=== PATIENT | male | born 1965 | race Caucasian/White ===

== ENCOUNTER → 2018-01-04 15:46 | Outpatient (CLI) | payer OTHER, SELFPAY ==
--- NOTE | 2018-01-04 15:46 | DT_ITS ---
This patient was seen during an EMR downtime January 02, 2018 - January 09, 2018. This patient may have a combination of paper and electronic documentation or all paper documentation. All documentation is viewable within the e-chart portion of [facility] for each patient visit.
--- NOTE | 2018-01-04 15:50 | RAD_ITS ---
STUDY: X-RAY - LEFT KNEE REASON FOR EXAM: Male, 52 years old. Pain. TECHNIQUE: 3 view(s) of the knee. COMPARISON: None. FINDINGS: Normal visualized distal femur. Normal visualized proximal tibia and fibula. Normal proximal tibiofibular articulation. There is mild degenerative arthrosis of the medial femorotibial compartment. There is mild degenerative arthrosis of the lateral femorotibial compartment. Normal patellofemoral articulation. The soft tissue structures are unremarkable. RAD/Knee 3 Views IMPRESSION: Degenerative arthrosis. Electronically Signed: Sarah Draper MD at 23:02 EDT Tel , Service support ,
--- NOTE | 2018-01-04 15:50 | RAD_ITS ---
STUDY: X-RAY - RIGHT KNEE REASON FOR EXAM: Male, 52 years old. Right knee pain. TECHNIQUE: 3 view(s) of the knee. COMPARISON: None. FINDINGS: Normal visualized distal femur. Normal visualized proximal tibia and fibula. Normal proximal tibiofibular articulation. There is mild degenerative arthrosis of the medial femorotibial compartment. There is mild degenerative arthrosis of the lateral femorotibial compartment. Normal patellofemoral articulation. The soft tissue structures are unremarkable. RAD/Knee 3 Views IMPRESSION: Degenerative arthrosis. Electronically Signed: Sarah Draper MD at 22:49 EDT Tel , Service support ,
--- NOTE | 2018-01-04 15:50 | RAD_ITS ---
STUDY: X-RAY - CERVICAL SPINE REASON FOR EXAM: Male, 52 years old. herniated disc, right side pain TECHNIQUE: 5 view(s) of the cervical spine were obtained. COMPARISON: None FINDINGS: Normal cervical lordosis. There is multi-level endplate spondylosis. There is minimal multi-level degenerative disc disease with multilevel disc space narrowing. The soft tissue structures are unremarkable. RAD/Cerv Spine 4 or 5 Views IMPRESSION: Degenerative changes of the spine. Electronically Signed: John Vizcarra MD at 9:43 EDT Tel , Service support ,
--- NOTE | 2018-01-04 15:50 | RAD_ITS ---
STUDY: X-RAY - SACROILIAC JOINTS REASON FOR EXAM: Male, 52 years old. bilat leg pain, back surg 2002. TECHNIQUE: 3 view(s) of the sacroiliac joints were obtained. COMPARISON: None. FINDINGS: Normal bilateral sacroiliac joints. Normal visualized sacral ala and sacrum. Normal visualized iliac bones. There is a neurostimulator device with electrodes overlying the region of S3/S4. RAD/S-I Jts 3 or More Views IMPRESSION: Normal x-ray examination of the bilateral sacroiliac joints. Electronically Signed: John Vizcarra MD at 9:47 EDT Tel , Service support ,
--- NOTE | 2018-01-04 15:50 | RAD_ITS ---
STUDY: X-RAY - LUMBAR SPINE REASON FOR EXAM: Male, 52 years old. bilat leg pain, 2003 back surg TECHNIQUE: 5 view(s) of the lumbar spine were obtained. COMPARISON: None FINDINGS: There is straightening of the normal lumbar lordosis. There is multilevel endplate spondylosis of the lumbar vertebrae. There is multi-level degenerative disc disease with multi-level disc space narrowing. The soft tissue structures are unremarkable. RAD/L/S Spine Min 4 Views IMPRESSION: Degenerative changes of the spine. Electronically Signed: John Vizcarra MD at 9:42 EDT Tel , Service support ,
== END ==
PROVIDERS: Family Provider Family Medicine; PCP Family Medicine; Visit Provider Family Medicine
DX: M54.2 Cervicalgia (principal); M46.90 Unspecified inflammatory spondylopathy, site unspecified; M25.561 Pain in right knee; M25.562 Pain in left knee
CPT/HCPCS: 72050; 72110; 72202; 73562

== ENCOUNTER → 2018-06-29 12:46 | Outpatient (CLI) | payer OTHER, SELFPAY ==
[2018-06-29 12:38] VITALS: BMI 57.3
--- NOTE | 2018-06-29 12:48 | RAD_ITS ---
STUDY: X-RAY - LEFT HAND, ATTENTION second FINGER REASON FOR EXAM: Male, 52 years old. Foreign body distal tip of finger TECHNIQUE: 3 view(s) of the finger were obtained. COMPARISON: None. FINDINGS: Normal metacarpal head. Normal metacarpophalangeal joint. Normal proximal phalanx. Normal middle phalanx. Normal distal phalanx. Normal proximal interphalangeal joint. Normal distal interphalangeal joint. RAD/Finger(s) Min 2 Views IMPRESSION: Normal x-ray examination of the finger. There is no radiopaque foreign body. Electronically Signed: Helen Marie MD at 3:12 EST , Service support ,
--- OUTSIDE RECORDS SUMMARY | 2018-08-24 16:11 | XMS RPT_ITS ---
:1965 Author Organization OHIP Care Team Providers Name Role Phone Fernando Poole D.O. Attending Unavailable Kamlesh Desouza Attending Unavailable Kamlesh Desouza Referring Unavailable Kamlesh Desouza Primary Care Unavailable Nurse, Surgery Attending Unavailable Kamlesh Desouza Referring Unavailable Sabina Garland Attending Unavailable Paige Garcia Attending Unavailable Kamlesh Desouza Referring Unavailable Paige Garcia Attending Unavailable Paige Garcia Referring Unavailable Kamlesh Desouza Primary Care Unavailable Paige Garcia Attending Unavailable Paige Garcia Referring Unavailable Arlington, Albina PLATE FILLER-C Primary Care Unavailable ArlingtonAlbina December Admitting Unavailable Arlington, Albina December Attending Unavailable Arlington, Albina December Primary Care Unavailable EVON, TAGREED M Attending Unavailable EVON, TAGREED M Referring Unavailable EVON, TAGREED M Referring Unavailable EVON, TAGREED M Referring Unavailable EVON, TAGREED M Attending Unavailable ELA MOSER Referring Unavailable ELA MOSER Attending Unavailable Eric Hansen MD Admitting Unavailable Eric Hansen MD Attending Unavailable DAPHNE ELIZALDE ([facility]) Attending Unavailable DAPHNE ELIZALDE ([facility]) Attending Unavailable JEZ SANDOVAL Attending Unavailable ELIZALDE, DAPHNE ([facility]) Referring Unavailable LOLI AMARAL Attending Unavailable CORTES ELIZALDEZABETH ([facility]) Referring Unavailable JEZ SANDOVAL Attending Unavailable CORTES ELIZALDEZABETH ([facility]) Referring Unavailable LOLI AMARAL Attending Unavailable ELIZALDE, DAPHNE ([facility]) Referring Unavailable SAMANTHA LOYD ([facility]) Attending Unavailable DAPHNE ELIZALDE ([facility]) Attending Unavailable ARA, CHELSIE NMiranda Admitting Unavailable ARA, CHELSIE N. Primary Care Unavailable IMCA Referring Unavailable ELIZALDE, EMELIAB Attending Unavailable IMCA Referring Unavailable FARSHAD MENDOZA Attending Unavailable LOLI AMARAL Attending Unavailable ELIZALDE, ELIZAB Referring Unavailable LOLI AMARAL Attending Unavailable ELIZALDE, ELIZAB Referring Unavailable IMCA Referring Unavailable IMCA Referring Unavailable SAMANTHA LOYD Attending Unavailable ELIZALDE, ELIZAB Referring Unavailable JEZ SANDOVAL Attending Unavailable LOLI AMARAL Attending Unavailable ELIZALDE, ELIZAB Referring Unavailable LOLI AMARAL Attending Unavailable ELIZALDE, ELIZAB Referring Unavailable IMCA Referring Unavailable EMELIA ELIZALDEB Attending Unavailable IMCA Referring Unavailable ELIZALDECORTESZAB Attending Unavailable IMCA Referring Unavailable ELIZALDEEMELIAB Attending Unavailable IMCA Referring Unavailable IMCA Primary Care Unavailable ELIZALDECORTESZAB Attending Unavailable ELIZALDE, ELIZAB Referring Unavailable JEZ SANDOVAL Attending Unavailable LOLI AMARAL Attending Unavailable ELIZALDE, ELIZAB Referring Unavailable PROBLEMS PROBLEMS DATE TYPE CONDITION / CODE ATTENDING STATUS SOURCE 07/11/2018 Active Unknown / ELIZALDE, Active [place] UNK(Unknown) [facility] Other (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) [place] Repository 07/03/2018 Active Dietary counseling NA Active [place] and surveillance / Clinic Other Z71.3(ICD-10) [place] Repository 06/29/2018 Unknown M79.645 - Pain in [place], Active [place] left finger(s) / [facility] M79.645(ICD-10) Hospital Repository 03/16/2016 Active Morbid (severe) SAMANTHA LOYD Active [place] obesity due to ([facility]) Clinic Other excess calories / [place] E66.01(ICD-10) Repository 06/27/2018 Active Obstructive sleep SAMANTHA LOYD Active [place] apnea (adult) ([facility]) Clinic Other (pediatric) / [place] G47.33(ICD-10) Repository 06/27/2018 Active 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 ([facility]) Clinic Other and devices / [place] Z99.89(ICD-10) Repository 03/16/2016 Admitting Unknown / SAMANTHA LOYD Active [facility] diagnosis UNK(Unknown) Health System Repository 06/08/2018 Active Other amnesia / JEZ SANDOVAL Active [place] R41.3(ICD-10) Clinic Other [place] Repository 06/08/2018 Active Bipolar disorder, JEZ SANDOVAL Active [place] currently in Clinic Other remission, most [place] recent episode Repository unspecified / F31.70(ICD-10) 06/08/2018 Active Bipolar disorder, ADRIEN, Active [place] unspecified / LOLI Clinic Other F31.9(ICD-10) [place] Repository 04/11/2018 Active Obsessive-compulsive ELIZALDE, Active [place] disorder, [facility] Clinic Other unspecified / ([facility]) [place] F42.9(ICD-10) Repository 04/11/2018 Active Unspecified mood ELIZALDE, Active [place] (affective) disorder [facility] Other / F39(ICD-10) ([facility]) [place] Repository 04/11/2018 Active Other snf ELIZALDE, Active [place] (current) drug [facility] Other therapy / ([facility]) [place] Z79.899(ICD-10) Repository 03/02/2018 Active Pain, unspecified / NA Active [place] R52(ICD-10) Clinic Main [place] Repository 01/25/2018 Unknown M54.2 - Cervicalgia Schinner, Kamlesh Active [place] / M54.2(ICD-10) E [facility] Repository 12/15/2017 Active Panic disorder TONIO, Active [place] (episodic paroxysmal [facility] Other anxiety) / (ORTHOPEDIC MECHANIC) [place] F41.0(ICD-10) Repository 12/01/2017 Active Low back pain / NA Active [place] M54.5(ICD-10) [facility] Main [place] Repository 12/01/2017 Active Other chronic pain / NA Active [place] G89.29(ICD-10) Clinic Main [place] Repository 12/01/2017 Active 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 [facility] services in other Hospital specified Repository circumstances / Z76.89(ICD-10) 09/29/2017 Admitting Encounter for [facility] diagnosis screening for Repository malignant neoplasm of prostate / Z12.5(ICD-10) 09/29/2017 Admitting Encounter for [facility] diagnosis screening for other Repository suspected endocrine disorder / Z13.29(ICD-10) 09/29/2017 Admitting Mixed hyperlipidemia [facility] diagnosis / E78.2(ICD-10) Repository 10/12/2017 Admitting Type 2 diabetes [facility] diagnosis mellitus without Repository complications / E11.9(ICD-10) PROCEDURES PROCEDURES No Procedure Records FoundRESULTS RESULTS OPERATIVE REPORT Observed: 07/12/2018 Status: F Source: ASIM 4:05 PM [facility] REPOSITORY [facility] Medical Records Department [address] [place] [id number] Operative Report 07/10/18 1419 MR#: [id number] Acct: [id number] Name: BENTLEY CRAWFORD Rep #: [id number] : 1965 52 From: Paige Garcia DO PCP: GEOVANNY Tolentino Status: [facility] [place] [facility] [place] Date of Procedure: 07/10/18 Pre-Operative Diagnosis: foreign body/ track left index finger Post-Operative Diagnosis: same Surgery/Procedure Performed:: left index finger foreign body excision/tract excision, soft tissue and ambar debridement Type of Anesthesia:: Local Estimated Blood Loss (mL): none Fluids Replaced: none Description of Procedure: Preop note Patient is a 52-year-old male who has had a left index finger appears to be a foreign body that keeps annoying him for over the last few months. Patient is seeing a application integration specialist and had it removed it came back. Wrist benefits alternatives surgery discussed with patient. Risks include but not limited to blood loss, blood clot, infection, neurovascular injury, failure procedure, loss of life and loss of limb. Is unsure if this is a foreign body or tract coming from somewhere else deeper so we will excise it including the skin is sent to pathology for further evaluation. Patient is aware like proceed his aforementioned. Operative note Patient seen and examined preoperative holding area left index finger was marked. Patient brought to the operating placed supine on the operating table. Signing anesthesia and antibiotics and local was placed into his left index finger. We able to visualize what appeared to be a little black dot just at the tip of his finger just underneath the germinal matrix. We then placed a tourniquet on his finger timeout was performed we then ellipticized the area which appeared to be with the black dot in the track and sent to pathology for further evaluation. We then were able to visualize the tract and there we were able to visualize the bone we did some bony debridement see if there is anything a foreign body or anything around the bones which there was not. We then irrigated the incision with copious amounts of sterile saline. We noted that there was no further tracking towards the nail or the pulp of the finger we closed the skin with interrupted 4-0 nylon stitches. Sterile dressings were applied tourniquet was removed. There were no complications transferred to recovery room in stable condition. Next Postoperative note May use finger as tolerated keep clean and dry for the next 10-14 days and Prescription at Hospital pharmacy Call with increased pain numbness tingling further issues arise This note was generated with [employer] dictation software. It may contain incorrect words, spelling, and punctuation that were not noted in checking the note before signing. 07/12/18 [id number] <Electronically signed by Paige Garcia DO> Date Paige Garcia DO CC: GEOVANNY Church; Paige Garcia DO Signed PROGRESS Observed: 07/11/2018 Status: COMPLETED Source: [place] 1:07 PM CLINIC OTHER CAMPUS REPOSITORY HNO ID: [id number] Author: Daphne Elizalde Service: (none) Author Type: Nurse Practitioner Type: Progress Notes Filed: 07/11/2018 3:04 PM Note Text: Time: 1:10 PM to 1:40 PM PHQ-9/JESSEE-7: Med list updated and PHQ9 and GAD7 completed during session; reviewed and discussed with patient; submitted for entry after session. Interim History: Bentley Crawford is a 52 year old male who presents in follow- up for Mood and Anxiety. He reports a pleasant Hanukkah with and son. They will celebrate Felicitas, too, since his is Anabaptism. Client reports medication adherence. Denies AEs. No TD/EPS. He has been meeting with Dr. Amaral, and will begin meeting with bariatric staff soon - he has decided to consider this procedure after many years of putting it off. His son is working with a psychologist, and Bentley continues to worry about him. He also feels sad that son seems to prefer to talk to his mother. Social Support: fair Substances: denies Labs/ medical: he had a procedure on his finger yesterday for unexplained growth; labs ordered in April not done yet; has had labs elsewhere by pcp. Current Outpatient Prescriptions on File Prior to Visit: baclofen (LIORESAL) 10 mg tablet Take 1 tablet by mouth three times daily as needed. Cholecalciferol, Vitamin D3, (VITAMIN D-3) 2,000 unit cap Take 5,000 Units by mouth. Takes 2 pills at the same time. clonazePAM (KLONOPIN) 1 mg tablet Take 1 tablet by mouth once daily for 90 days. fluticasone propionate (FLONASE ALLERGY RELIEF NASAL) Use in the nose. glimepiride (AMARYL) 1 mg tablet Take 1 mg by mouth daily with breakfast. lamoTRIgine (LAMICTAL) 200 mg tablet Take 1 tablet by mouth once daily. metFORMIN (GLUCOPHAGE) 1,000 mg tablet Take 1,000 mg by mouth twice daily. mometasone (NASONEX) 50 mcg/actuation nasal spray Use 2 Sprays in the nose once daily. oxaprozin (DAYPRO) 600 mg tablet Take 1 tablet twice daily or 2 tablets once daily with food as need for pain; no other NSAIDs while taking RABEPRAZOLE SODIUM (ACIPHEX ORAL) Take 20 mg by mouth twice daily. risperiDONE (RISPERDAL) 3 mg tablet Take 1 tablet by mouth twice daily. rosuvastatin (CRESTOR) 10 mg tablet Take 10 mg by mouth once daily. UBIDECARENONE (CO Q-10 ORAL) Take by mouth. venlafaxine ER (EFFEXOR XR) 150 mg 24 hr capsule Take 2 capsules by mouth once daily. No current facility-administered medications on file prior to visit. Problem List Noted Noted By Resolved Resolved By Chronic bilateral low back pain with sciatica 03/16/2016 [facility] No Morbid obesity (HCC) 03/16/2016 [facility] No Post laminectomy syndrome 10/06/2015 [facility] No Neuritis 07/09/2015 [facility] lateral [facility]yl[facility]/12[facility]2015 [facility] Elbow pain 02/12/2015 [facility] No Pain in right wrist 02/12/2015 [facility] No Soft tissue mass 02/12/2015 [facility] No Scrotal skin lesion 12/09/2014 Diego Stafford No S/P left knee arthroscopy and partial medial meniscectomy 03/14/2014 Ela Moser No Urinary urgency 11/22/2013 [facility] No Urge incontinence 11/22/2013 Diego Stafford No TMJ dysfunction 07/23/2013 [facility] No Referred otalgia 07/23/2013 [facility] No S/P right knee arthroscopy, partial medial meniscectomy and chondroplasties 06/14/2013 Ela Moser No Tear of medial cartilage or meniscus of knee, current 04/26/2013 Ela Moser No Bilateral low back pain with sciatica 10/06/2015 [facility] 03/16/2016 [facility] Morbid obesity due to excess calories (HCC) 10/06/2015 [facility] 03/16/2016 [facility] MSE: - Appearance casual dress, fair grooming - Behavior pleasant and engaged - Speech loud volume at baseline, circumstantial - Mood fairly euthymic, occasional anger, low energy and motivation - Affect congruent - Thought process ruminative - Thought content avoidant - Cognition grossly intact, concrete - Insight/Judgment fair/ intact Delusion: No. Hallucination: No Suicidal Ideation:No suicidal ideation, intent or plan Homicidal Ideation:No homicidal ideation, intent or plan. Orientation:Person, Place, Time and Situation Gait and Station: wnl Vital Signs: not checked today AIMS: wnl Review Of Systems Neurological/Sleep: Sleeps at night, but also sleeps most of the day which he says his way of coping/avoiding worries Appetite/Gastrointestinal: intact Skin: intact Other : Morbidly obese Diagnosis: Per hx, 1. Bipolar affective disorder, remission status unspecified (HCC) - ICD9: 296.80, ICD10: F31.9 (primary diagnosis) ? 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 ? 2. Obsessive-compulsive disorder, unspecified type - ICD9: 300.3, ICD10: F42.9 Hx of trauma - 04/11 - worked at [employer] ? current - ASSESSMENT/PLAN: 1. Bipolar affective disorder, remission status unspecified (HCC) - ICD9: 296.80, ICD10: F31.9 (primary diagnosis) 2. Obsessive-compulsive disorder, unspecified type - ICD9: 300.3, ICD10: F42.9 Daphne Elizalde APRN.ORTHOPEDIC MECHANIC Condition: Unchanged Therapy/ Treatment Plan: Supportive and educational interventions. Medication R/B/BBWs reviewed, including metabolic syndrome with risperidone. Bentley remains fearful of medication changes due to past issues with anger/aggression attributed to a bipolar disorder. However, he has wondered about the impact of risperidone on his weight. We discussed the potential role of medication in weight issues as particularly relevant in the context of considering bariatric surgery. He is to begin a weight loss plan soon, so we have agreed to f/u in 3 months to reassess; he says he is able to bring his to his next appointment for collateral information and tx planning -- if medication changes made, she may help him monitor for changes in mood and fx. Medication: Continue for now -- Klonopin 1 mg daily prn panic. Call if refill needed. Effexor XR 150 mg BID ? Risperdal 3 mg BID ? -- Bentley says he has taken this medication as 6 mg qhs for many years - he is not sure how that came to be. New order changed to reflect 6 mg nightly. Lamictal 200 mg daily ? Monitor: weight/eating habits, mood, anxiety, sleep OARRS: PDMP website checked and validated. All prescriptions have been APPROPRIATELY filled. No suspicious activity was identified. 07/11/2018 by Daphne Elizalde APRN.NIVIA Follow-up in 3 months. Sooner, if needed. Referred to/follow-up with: dr. Amaral, bariatrics, pcp as directed Daphne Elizalde APRN.CNP HOSP Observed: 07/11/2018 Status: COMPLETED Source: [place] 1:00 PM CLINIC OTHER CAMPUS REPOSITORY Psych Office Visit (AGPSYACC) BENTLEY CRAWFORD ([id number]) 1965 M Date Time Provider Department 07/11/18 1:00 PM DAPHNE ELIZALDE ([facility]) AGPSYACC During your visit today, we recorded the following information about you: Daphne Elizalde APRN.CNP 07/11/2018 3:04 PM Signed Time: 1:10 PM to 1:40 PM PHQ-9/JESSEE-7: Med list updated and PHQ9 and GAD7 completed during session; reviewed and discussed with patient; submitted for entry after session. Interim History: Bentley Crawford is a 52 year old male who presents in follow- up for Mood and Anxiety. He reports a pleasant Hanukkah with and son. They will celebrate Felicitas, too, since his is Anabaptism. Client reports medication adherence. Denies AEs. No TD/EPS. He has been meeting with Dr. Amaral, and will begin meeting with bariatric staff soon - he has decided to consider this procedure after many years of putting it off. His son is working with a psychologist, and Bentley continues to worry about him. He also feels sad that son seems to prefer to talk to his mother. Social Support: fair Substances: denies Labs/ medical: he had a procedure on his finger yesterday for unexplained growth; labs ordered in April not done yet; has had labs elsewhere by pcp. Current Outpatient Prescriptions on File Prior to Visit: baclofen (LIORESAL) 10 mg tablet Take 1 tablet by mouth three times daily as needed. Cholecalciferol, Vitamin D3, (VITAMIN D-3) 2,000 unit cap Take 5,000 Units by mouth. Takes 2 pills at the same time. clonazePAM (KLONOPIN) 1 mg tablet Take 1 tablet by mouth once daily for 90 days. fluticasone propionate (FLONASE ALLERGY RELIEF NASAL) Use in the nose. glimepiride (AMARYL) 1 mg tablet Take 1 mg by mouth daily with breakfast. lamoTRIgine (LAMICTAL) 200 mg tablet Take 1 tablet by mouth once daily. metFORMIN (GLUCOPHAGE) 1,000 mg tablet Take 1,000 mg by mouth twice daily. mometasone (NASONEX) 50 mcg/actuation nasal spray Use 2 Sprays in the nose once daily. oxaprozin (DAYPRO) 600 mg tablet Take 1 tablet twice daily or 2 tablets once daily with food as need for pain; no other NSAIDs while taking RABEPRAZOLE SODIUM (ACIPHEX ORAL) Take 20 mg by mouth twice daily. risperiDONE (RISPERDAL) 3 mg tablet Take 1 tablet by mouth twice daily. rosuvastatin (CRESTOR) 10 mg tablet Take 10 mg by mouth once daily. UBIDECARENONE (CO Q-10 ORAL) Take by mouth. venlafaxine ER (EFFEXOR XR) 150 mg 24 hr capsule Take 2 capsules by mouth once daily. No current facility-administered medications on file prior to visit. Problem List Noted Noted By Resolved Resolved By Chronic bilateral low back pain with sciatica 03/16/2016 [facility] No Morbid obesity (HCC) 03/16/2016 [facility] No Post laminectomy syndrome 10/06/2015 [facility] No Neuritis 07/09/2015 Yany Parker No Right lateral epicondylitis 02/12/2015 Yany Parker No Elbow pain 02/12/2015 Y[facility] No Pain in right wrist 02/12/2015 [facility] No Soft tissue mass 02/12/2015 [facility] No Scrotal skin lesion 12/09/2014 Diego Stafford No S/P left knee arthroscopy and partial medial meniscectomy 03/14/2014 Ela Moser No Urinary urgency 11/22/2013 Diego Stafford No Urge incontinence 11/22/2013 Diego Stafford No TMJ dysfunction 07/23/2013 [facility] No Referred otalgia 07/23/2013 [facility] No S/P right knee arthroscopy, partial medial meniscectomy and chondroplasties 06/14/2013 Ela Moser No Tear of medial cartilage or meniscus of knee, current 04/26/2013 Ela Moser No Bilateral low back pain with sciatica 10/06/2015 Glen [facility] 03/16/2016 [facility] Morbid obesity due to excess calories (HCC) 10/06/2015 Glen Lopez 03/16/2016 [facility] MSE: - Appearance casual dress, fair grooming - Behavior pleasant and engaged - Speech loud volume at baseline, circumstantial - Mood fairly euthymic, occasional anger, low energy and motivation - Affect congruent - Thought process ruminative - Thought content avoidant - Cognition grossly intact, concrete - Insight/Judgment fair/ intact Delusion: No. Hallucination: No Suicidal Ideation:No suicidal ideation, intent or plan Homicidal Ideation:No homicidal ideation, intent or plan. Orientation:Person, Place, Time and Situation Gait and Station: wnl Vital Signs: not checked today AIMS: wnl Review Of Systems Neurological/Sleep: Sleeps at night, but also sleeps most of the day which he says his way of coping/avoiding worries Appetite/Gastrointestinal: intact Skin: intact Other : Morbidly obese Diagnosis: Per hx, 1. Bipolar affective disorder, remission status unspecified (HCC) - ICD9: 296.80, ICD10: F31.9 (primary diagnosis) ? 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 ? 2. Obsessive-compulsive disorder, unspecified type - ICD9: 300.3, ICD10: F42.9 Hx of trauma - 04/11 - worked at [employer] ? current - ASSESSMENT/PLAN: 1. Bipolar affective disorder, remission status unspecified (HCC) - ICD9: 296.80, ICD10: F31.9 (primary diagnosis) 2. Obsessive-compulsive disorder, unspecified type - ICD9: 300.3, ICD10: F42.9 Daphne Elizalde APRN.NIVIA Condition: Unchanged Therapy/ Treatment Plan: Supportive and educational interventions. Medication R/B/BBWs reviewed, including metabolic syndrome with risperidone. Bentley remains fearful of medication changes due to past issues with anger/aggression attributed to a bipolar disorder. However, he has wondered about the impact of risperidone on his weight. We discussed the potential role of medication in weight issues as particularly relevant in the context of considering bariatric surgery. He is to begin a weight loss plan soon, so we have agreed to f/u in 3 months to reassess; he says he is able to bring his to his next appointment for collateral information and tx planning -- if medication changes made, she may help him monitor for changes in mood and fx. Medication: Continue for now -- Klonopin 1 mg daily prn panic. Call if refill needed. Effexor XR 150 mg BID ? Risperdal 3 mg BID ? -- Bentley says he has taken this medication as 6 mg qhs for many years - he is not sure how that came to be. New order changed to reflect 6 mg nightly. Lamictal 200 mg daily ? Monitor: weight/eating habits, mood, anxiety, sleep OARRS: PDMP website checked and validated. All prescriptions have been APPROPRIATELY filled. No suspicious activity was identified. 07/11/2018 by Daphne Elizalde APRN.ORTHOPEDIC MECHANIC Follow-up in 3 months. Sooner, if needed. Referred to/follow-up with: dr. Amaral, bariatrics, pcp as directed Daphne Elizalde APRN.ORTHOPEDIC MECHANIC Referring Provider: SELF [200] Allergies As of Date: 07/11/2018 Noted Allergy Reaction CATS 04/03/2014 9 - Itching SEASONAL ALLERGIES 09/17/2014 14 - Other: See Comments Comments: Runny nose and itchy eyes Date Reviewed: 06/27/2018 Reviewed by: Piedad Huber - Fully Assessed Reason for Visit: Mood [1090] Anxiety [9] Primary Visit Diagnosis:Bipolar affective disorder, remission status unspecified ([facility]) [F31.9] Other Visit Diagnosis:Obsessive-compulsive disorder, unspecified type [F42.9] Order(s):lamoTRIgine (LAMICTAL) 200 mg tabletTake 1 tablet by mouth once daily.Disp: 30 tabletRfl: 2 risperiDONE (RISPERDAL) 3 mg tabletTake 2 tablets by mouth daily at bedtime.Disp: 60 tabletRfl: 2 venlafaxine ER (EFFEXOR XR) 150 mg 24 hr capsuleTake 2 capsules by mouth once daily.Disp: 60 capsuleRfl: 2 Prescriptions as of 07/11/2018 Sig: BACLOFEN 10 MG TABLET Take 1 tablet by mouth three * CHOLECALCIFEROL (VITAMIN D3) * Take 5,000 Units by mouth. Ta* FLONASE ALLERGY RELIEF NASAL Use in the nose. GLIMEPIRIDE 1 MG TABLET Take 1 mg by mouth daily with* LAMOTRIGINE 200 MG TABLET Take 1 tablet by mouth once d* METFORMIN 1,000 MG TABLET Take 1,000 mg by mouth twice * MOMETASONE 50 MCG/ACTUATION N* Use 2 Sprays in the nose once* OXAPROZIN 600 MG TABLET Take 1 tablet twice daily or * ACIPHEX ORAL Take 20 mg by mouth twice kitty* RISPERIDONE 3 MG TABLET Take 2 tablets by mouth daily* ROSUVASTATIN 10 MG TABLET Take 10 mg by mouth once bryanna* CO Q-10 ORAL Take by mouth. VENLAFAXINE ER 150 MG CAPSULE* Take 2 capsules by mouth once* CLONAZEPAM 1 MG TABLET Take 1 tablet by mouth once d* Problem List As Of Date 07/11/2018 Noted Resolved Tear of medial cartilage or meniscus of knee, c*INVALID FOR* S/P right knee arthroscopy, partial medial meni*INVALID FOR* 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] INVALID FOR* Referred otalgia [H92.09] INVALID FOR* Urinary urgency [R39.15] INVALID FOR* Urge incontinence [N39.41] INVALID FOR* S/P left knee arthroscopy and partial medial me*INVALID FOR* Scrotal skin lesion [N50.9] INVALID FOR* Right lateral epicondylitis [M77.11] INVALID FOR* Elbow pain [M25.529] INVALID FOR* Pain in right wrist [M25.531] INVALID FOR* Soft tissue mass [M79.9] INVALID FOR* Neuritis [M79.2] INVALID FOR* Bilateral low back pain with sciatica [M54.40] INVALID FOR*03/16/2016 Morbid obesity due to excess calories (HCC) [E6*INVALID FOR*03/16/2016 Post laminectomy syndrome [M96.1] INVALID FOR* Chronic bilateral low back pain with sciatica [*INVALID FOR* Morbid obesity (HCC) [E66.01] INVALID FOR* Prescriptions ordered this encounter Disp Refills Start End LAMOTRIGINE 200 MG TABLET 30 t* 2 07/11/2018 Route: ORAL Sig: Take 1 tablet by mouth once daily. RISPERIDONE 3 MG TABLET 60 t* 2 07/11/2018 Route: ORAL Sig: Take 2 tablets by mouth daily at bedtime. VENLAFAXINE ER 150 MG CAPSULE,EXTEND* 60 c* 2 07/11/2018 Route: ORAL Sig: Take 2 capsules by mouth once daily. Medications Discontinued During This Encounter lamoTRIgine (LAMICTAL) 200 mg tablet 90 t* 1 01/19/2018 07/11/2018 Route: ORAL Sig: Take 1 tablet by mouth once daily. Disc: Reason for discontinue is not on file. risperiDONE (RISPERDAL) 3 mg tablet 180 * 1 01/19/2018 07/11/2018 Route: ORAL Sig: Take 1 tablet by mouth twice daily. Disc: Reason for discontinue is not on file. venlafaxine ER (EFFEXOR XR) 150 mg 2* 180 * 1 01/19/2018 07/11/2018 Route: ORAL Sig: Take 2 capsules by mouth once daily. Disc: Reason for discontinue is not on file. Follow-up and Disposition History Recorded Encounter Status:Closed by DAPHNE ELIZALDE CNP on 07/11/18 DISCHARGE INSTRUCTION Observed: 07/10/2018 Status: F Source: [place] 2:19 PM [facility] REPOSITORY [facility] Medical Records Department [address] [place] [address] Instructions for Home/Discharge Instructions 07/10/18 1418 MR#: [id number] Acct: [id number] Name: BENTLEY CRAWFORD Rep #: [id number] : 1965 52 From: Paige Garcia DO PCP: GEOVANNY Tolentino [place] [facility] [place] Diet: No Restrictions - leave dressing clean and dry, call with issues, may redress area if gets wet/soiled, follow up in 10-14 days for suture removal Discharge Activity: May Not Drive May shower in (days): 1 Ice area for (Minutes): 20 - Every hour while awake. Weight Bearing Status: Weight bearing as tolerated Keep extremity elevated above heart level: Operative Extremity Call your doctor if your incision/area has: Continuous Slow Oozing, Sudden Increased Bleeding, Increased Pain/ Swelling, Increased Redness, Foul Smelling Discharge Call your doctor if you observe: Fever of 101 or Higher, Coldness, Increased Pain, Numbness or Tingling, Change in Color, Calf discomfort Allergies/Adverse Reactions: Allergies No Known Allergies Allergy (Verified 07/07/18 15:22) Medications to take at Discharge cholecalciferol (vitamin D3) 3,000 unit tablet 5,000 unit PO QDAY 11/01/17 coenzyme Q10 100 mg capsule 100 mg PO QDAY 11/01/17 glimepiride 1 mg tablet 1 mg PO DAILY tab 11/01/17 lamotrigine 200 mg tablet 200 mg PO DAILY 11/01/17 metformin 500 mg tablet 1,000 mg PO BID tab 11/01/17 mometasone 50 mcg/actuation nasal spray 2 spray INTRANASAL ONCE g 11/01/17 rabeprazole 20 mg tablet,delayed release 20 mg PO BID 11/01/17 risperidone 3 mg tablet 3 mg PO BID tab 11/01/17 rosuvastatin 10 mg tablet 10 mg PO QHS 11/01/17 venlafaxine ER 150 mg capsule,extended release 24 hr 150 mg PO BID 11/01/17 Acetaminophen/Codeine #3 [Tylenol #3 Tablet] 1 - 2 tablet PO Q6H PRN PRN #30 tablet 07/10/18 The following prescriptions were given: Acetaminophen/Codeine #3 [Tylenol #3 Tablet] 1 - 2 tablet PO Q6H PRN PRN #30 tablet PRN Reason: Pain Primary Care Physician: Albina Church NP-C [Primary Care Provider] - Test Results: Test results from this visit will be discussed in further detail at your follow-up appointment, if applicable. Please Follow Up With: Paige Garcia DO - [phone] 07/10/18 1419 <Electronically signed by Paige Garcia DO> Date Paige Garcia DO CC: GEOVANNY Church CYST Observed: 07/10/2018 Status: F Source: [place] 12:00 AM [facility] REPOSITORY Patient: BENTLEY CRAWFORD : 1965 (52/M) Acct Num: [id number] Phys: Paige Garcia DO Unit Num: [id number] [place] [facility] [place]imen: [id number] Received: 07/10/18 1453 Spec Type: Cyst TISSUES 1 TISSUES: Finger, NOS COMMENT Clinical correlation is suggested. A distinct cystic structure is not identified. GROSS DESCRIPTION Received in fixative is one container labeled with the patient's name and designated left index finger cyst. The specimen consists of two irregular fragments of knight tissue measuring 0.6 x 0.5 x 0.1 cm. The specimen is totally submitted in one cassette. / AM:adarsh 07/10/18 TC:5 CPT: 54341 HEADER OPERATION: Left index finger cyst excision PRE-OP DIAGNOSIS: Left index finger cyst TISSUE SUBMITTED: Left index finger cyst MICROSCOPIC DESCRIPTION Slides are reviewed. MICROSCOPIC DIAGNOSIS Left index finger cyst, biopsy: Fragments of hyperkeratotic superficial skin. AM:adarsh 07/11/18 Signed Brice Lauren 07/11/18 <signature on file> Performed By: #### PCYST #### [facility] [address] [place], [address] ORTHOPEDIC VISIT Observed: 07/06/2018 Status: F Source: [place] REPORT 10:36 AM [facility] REPOSITORY [facility] [address] [place] [address] OFFICE VISIT Date of Service: 06/29/18 MR#: [id number] Acct: [id number] Name: BENTLEY CRAWFORD Rep #: [id number] : 1965 Provider: Paige Garcia DO Age/Sex: 52/M Location: [place] Status: Signed Intake Vital Signs06/29/18 Height 5 ft 11 in 06/29/18 Weight: 411 lb 06/29/18 Body Mass Index (BMI) 57.3 Intake Visit Reasons: LEFT HAND Is patient in pain?: Yes Pain scale (1-10): 1 Allergies No Known Allergies Allergy (Verified 06/29/18 12:38) Medications cholecalciferol (vitamin D3) 3,000 unit tablet 3,000 unit PO QDAY 11/01/17 [History Confirmed 11/01/17] coenzyme Q10 100 mg capsule 100 mg PO QDAY 11/01/17 [History Confirmed 11/01/17] glimepiride 1 mg tablet 1 mg PO BID tab 11/01/17 [History Confirmed 11/01/17] lamotrigine 200 mg tablet PO 11/01/17 [History Confirmed 11/01/17] metformin 500 mg tablet 1,000 mg PO BID tab 11/01/17 [History Confirmed 11/01/17] mometasone 50 mcg/actuation nasal spray 2 spray INTRANASAL ONCE g 11/01/17 [History Confirmed 11/01/17] rabeprazole 20 mg tablet,delayed release 20 mg PO BID 11/01/17 [History Confirmed 11/01/17] risperidone 3 mg tablet 3 mg PO BID tab 11/01/17 [History Confirmed 11/01/17] rosuvastatin 10 mg tablet 10 mg PO ONCE 11/01/17 [History Confirmed 11/01/17] venlafaxine ER 150 mg capsule,extended release 24 hr 150 mg PO ONCE 11/01/17 [History Confirmed 11/01/17] PFSH Medical History Reflux esophagitis (Chronic) Eustachian tube disorder (Acute) Deviated septum (Acute) Nasal turbinate hypertrophy (Acute) Temporomandibular disorder (Acute) Head and face pain (Acute) Allergic rhinitis (Chronic) RUSTY (obstructive sleep apnea) (Chronic) Surgical History History of nasal surgery (Resolved) History of back surgery (Resolved) H/O abdominal surgery (Resolved) Family History Unknown Heart disease Diabetes Cancer Social History Smoking Status: Never smoker second hand exposure: No alcohol intake: never substance use type: does not use HPI LEFT HAND: Details: BENTLEY CRAWFORD is a 52 year old M here today for his left index finger. Patient notes that he has had a bump on his left index finger which has been there since this year. He states that the bump will come to the surface and then it peels off. Patient notes that he has pain when his bump is at the surface. He denies any stiffness and has good range of motion. Denies numbness, tingling or other associated symptoms. Patient denies any xrays. Patient saw his application integration specialist who opened up the bump and cauterized his finger. ROS Const Reports system reviewed and no additional complaints, except as docu Eyes Reports system reviewed and no additional complaints, except as docu ENT Reports system reviewed and no additional complaints, except as docu Card Reports system reviewed and no additional complaints, except as docu Resp Reports system reviewed and no additional complaints, except as docu GI Reports system reviewed and no additional complaints, except as docu Reports system reviewed and no additional complaints, except as docu Musc Reports joint pain Skin/Breast Reports system reviewed and no additional complaints, except as docu Neuro Yes system reviewed and no additional complaints, except as docu Psych Reports system reviewed and no additional complaints, except as docu Endo Reports system reviewed and no additional complaints, except as docu Assessment AND Plan Plan Personally reviewed the patient's medical history, medications, surgeries and recent exams if available. X-rays were reviewed. There is no obvious fracture, dislocation, or lucency noted. Educated on the anatomy of the finger and explained that he appears to have something that needs removed like a tracking cyst or foreign body. Reviewed the pre-operative plans with the patient. Risks and benefits of the procedure were fully explained, including but not limited to infection, neurovascular injury, continued pain, arthritis, stiffness, need for further surgery, re-injury, DVT, PE, general risks of anesthesia, and loss of limb or life. The patient understands all the risks and does wish to proceed with written consent. Follow up post op or sooner if pain, swelling, numbness or associated symptoms, or concerns develop. All questions answered. Patient in agreement of plan. Orders Orders: Coding Level of Care Code mirella Campuzano,level 3 07/06/18 1036 <Electronically signed by Paige Garcia DO> Date Pagie Johnsonigndaniel Signature: Date (if applicable) CC: MIGDALIA Observed: 07/03/2018 Status: COMPLETED Source: [place] 9:30 AM [facility] OTHER [facility] REPOSITORY Nurse Visit (AGGENS4) BENTLEY CRAWFORD ([id number]) 1965 M Date Time Provider Department 07/03/18 9:30 AM [facility] 492 AGG[facility]4 During your visit today, we recorded the following information about you: Terri Marrero RD, LD 07/03/2018 11:26 AM Signed [facility] General - Bariatric Department New Patient Nutritional Assessment--Shared Nutrition Appointment Bentley Crawford Anthropometrics: 52 year old male There were no vitals taken for this visit. Percent Body Fat: deferred Medical History: PAST MEDICAL HISTORY Diagnosis Date - Anxiety - Bipolar affective disorder (HCC) - Depression - GERD (gastroesophageal reflux disease) - Hyperlipidemia - Obesity - RUSTY on CPAP takes oxygen (2.5 with oxygen concentrator) with nocturnal CPAP. - Overactive bladder - Pre-diabetes - Right knee meniscal tear Medications: Current Outpatient Prescriptions: fluticasone propionate (FLONASE ALLERGY RELIEF NASAL) Use in the nose. Disp: Rfl: lamoTRIgine (LAMICTAL) 200 mg tablet Take 1 tablet by mouth once daily. Disp: 90 tablet Rfl: 1 risperiDONE (RISPERDAL) 3 mg tablet Take 1 tablet by mouth twice daily. Disp: 180 tablet Rfl: 1 venlafaxine ER (EFFEXOR XR) 150 mg 24 hr capsule Take 2 capsules by mouth once daily. Disp: 180 capsule Rfl: 1 clonazePAM (KLONOPIN) 1 mg tablet Take 1 tablet by mouth once daily for 90 days. Disp: 10 tablet Rfl: 0 glimepiride (AMARYL) 1 mg tablet Take 1 mg by mouth daily with breakfast. Disp: Rfl: UBIDECARENONE (CO Q-10 ORAL) Take by mouth. Disp: Rfl: Cholecalciferol, Vitamin D3, (VITAMIN D-3) 2,000 unit cap Take 5,000 Units by mouth. Takes 2 pills at the same time. Disp: Rfl: mometasone (NASONEX) 50 mcg/actuation nasal spray Use 2 Sprays in the nose once daily. Disp: Rfl: rosuvastatin (CRESTOR) 10 mg tablet Take 10 mg by mouth once daily. Disp: Rfl: oxaprozin (DAYPRO) 600 mg tablet Take 1 tablet twice daily or 2 tablets once daily with food as need for pain; no other NSAIDs while taking Disp: 60 tablet Rfl: 2 baclofen (LIORESAL) 10 mg tablet Take 1 tablet by mouth three times daily as needed. Disp: 90 tablet Rfl: 1 metFORMIN (GLUCOPHAGE) 1,000 mg tablet Take 1,000 mg by mouth twice daily. Disp: Rfl: RABEPRAZOLE SODIUM (ACIPHEX ORAL) Take 20 mg by mouth twice daily. Disp: Rfl: No current facility-administered medications for this visit. Allergies: Cats; Seasonal Allergies Weight History: See PLATE FILLER notes from initial program visit. Dietary Intake: 24 hour recall provided Breakfast- bagel w/ CC Lunch- nothing Dinner- beef, brussels sprouts, potatoes Snacks- potato chips Limitations of keeping a food record: none reported Food Allergies: none reported Frequency of fried foods: 1-2 times per week Frequency of high sugar foods: 1-2 times per week Frequency of snack-type foods: 1-2 times per week Frequency of caffeine/carbonated beverages: 1-2 times per week Frequency of dining out meals: 1-2 times per week Physical Activity: Physical conditions limiting activity: back/knee pain Current activity: Never READINESS TO LEARN Cognitive ability: Alert and oriented Motivation to learn: Interested Family support: Unable to assess - Family not present Instruction provided to: Patient Patient learns best by: Multiple Methods Factors affecting learning: None Physical limitations affecting learning: None Nutrition Diagnosis: Overweight Obesity, related to; decreased energy needs, as evidenced by BMI above normative standard for age and gender, excessive energy intake, infrequent, low-duration and/or low-intensity physical activity and inablitlity to maintain weight . Nutrition Intervention: Start to follow meal guidelines provided and work toward goals outlined below. Nutrition Monitoring AND Evaluation: Monthly supervised wt loss to evaluate weight loss efforts with pre-op goal weight of 397#. Required months of supervised weight loss per insurance: per PLATE FILLER notes Written information provided and reviewed: Healthy plate/menus Behavior Checklist Journal Chair Exercises What's in season h/o The setting was a shared nutrition?appointment in which he was seen individually with group observers. ?Consent to be seen in a group setting was obtained and signed. Goals reviewed and outlined below. ? Goals: Goals - formal exercise 2-7x/week as tolerated, goal of 30 minutes - Have 3 meals a day-protein source with each meal - journal daily and bring to all appointments Terri Marrero RD, LD Referring Provider: SELF [200] Allergies As of Date: 07/03/2018 Noted Allergy Reaction CATS 04/03/2014 9 - Itching SEASONAL ALLERGIES 09/17/2014 14 - Other: See Comments Comments: Runny nose and itchy eyes Date Reviewed: 06/27/2018 Reviewed by: Piedad Huber - Fully Assessed Primary Visit Diagnosis:Dietary counseling and surveillance [Z71.3] Prescriptions as of 07/03/2018 Sig: FLONASE ALLERGY RELIEF NASAL Use in the nose. LAMOTRIGINE 200 MG TABLET Take 1 tablet by mouth once d* RISPERIDONE 3 MG TABLET Take 1 tablet by mouth twice * VENLAFAXINE ER 150 MG CAPSULE* Take 2 capsules by mouth once* CLONAZEPAM 1 MG TABLET Take 1 tablet by mouth once d* GLIMEPIRIDE 1 MG TABLET Take 1 mg by mouth daily with* CO Q-10 ORAL Take by mouth. CHOLECALCIFEROL (VITAMIN D3) * Take 5,000 Units by mouth. Ta* MOMETASONE 50 MCG/ACTUATION N* Use 2 Sprays in the nose once* ROSUVASTATIN 10 MG TABLET Take 10 mg by mouth once bryanna* OXAPROZIN 600 MG TABLET Take 1 tablet twice daily or * BACLOFEN 10 MG TABLET Take 1 tablet by mouth three * METFORMIN 1,000 MG TABLET Take 1,000 mg by mouth twice * ACIPHEX ORAL Take 20 mg by mouth twice kitty* Problem List As Of Date 07/03/2018 Noted Resolved Tear of medial cartilage or meniscus of knee, c*INVALID FOR* S/P right knee arthroscopy, partial medial meni*INVALID FOR* 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] INVALID FOR* Referred otalgia [H92.09] INVALID FOR* Urinary urgency [R39.15] INVALID FOR* Urge incontinence [N39.41] INVALID FOR* S/P left knee arthroscopy and partial medial me*INVALID FOR* Scrotal skin lesion [N50.9] INVALID FOR* Right lateral epicondylitis [M77.11] INVALID FOR* Elbow pain [M25.529] INVALID FOR* Pain in right wrist [M25.531] INVALID FOR* Soft tissue mass [M79.9] INVALID FOR* Neuritis [M79.2] INVALID FOR* Bilateral low back pain with sciatica [M54.40] INVALID FOR*03/16/2016 Morbid obesity due to excess calories (HCC) [E6*INVALID FOR*03/16/2016 Post laminectomy syndrome [M96.1] INVALID FOR* Chronic bilateral low back pain with sciatica [*INVALID FOR* Morbid obesity (HCC) [E66.01] INVALID FOR* Encounter Status:Closed by TERRI MARRERO RD on 07/03/18 PROGRESS Observed: 07/03/2018 Status: COMPLETED Source: [place] 8:50 AM [facility] REPOSITORY HNO ID: [id number] Author: Terri Marrero Service: (none) Author Type: Registered Dietitian Type: Progress Notes Filed: 07/03/2018 11:26 AM Note Text: [facility] General - Bariatric Department New Patient Nutritional Assessment--Shared Nutrition Appointment Bentley Crawford Anthropometrics: 52 year old male There were no vitals taken for this visit. Percent Body Fat: deferred Medical History: PAST MEDICAL HISTORY Diagnosis Date - Anxiety - Bipolar affective disorder (HCC) - Depression - GERD (gastroesophageal reflux disease) - Hyperlipidemia - Obesity - RUSTY on CPAP takes oxygen (2.5 with oxygen concentrator) with nocturnal CPAP. - Overactive bladder - Pre-diabetes - Right knee meniscal tear Medications: Current Outpatient Prescriptions: fluticasone propionate (FLONASE ALLERGY RELIEF NASAL) Use in the nose. Disp: Rfl: lamoTRIgine (LAMICTAL) 200 mg tablet Take 1 tablet by mouth once daily. Disp: 90 tablet Rfl: 1 risperiDONE (RISPERDAL) 3 mg tablet Take 1 tablet by mouth twice daily. Disp: 180 tablet Rfl: 1 venlafaxine ER (EFFEXOR XR) 150 mg 24 hr capsule Take 2 capsules by mouth once daily. Disp: 180 capsule Rfl: 1 clonazePAM (KLONOPIN) 1 mg tablet Take 1 tablet by mouth once daily for 90 days. Disp: 10 tablet Rfl: 0 glimepiride (AMARYL) 1 mg tablet Take 1 mg by mouth daily with breakfast. Disp: Rfl: UBIDECARENONE (CO Q-10 ORAL) Take by mouth. Disp: Rfl: Cholecalciferol, Vitamin D3, (VITAMIN D-3) 2,000 unit cap Take 5,000 Units by mouth. Takes 2 pills at the same time. Disp: Rfl: mometasone (NASONEX) 50 mcg/actuation nasal spray Use 2 Sprays in the nose once daily. Disp: Rfl: rosuvastatin (CRESTOR) 10 mg tablet Take 10 mg by mouth once daily. Disp: Rfl: oxaprozin (DAYPRO) 600 mg tablet Take 1 tablet twice daily or 2 tablets once daily with food as need for pain; no other NSAIDs while taking Disp: 60 tablet Rfl: 2 baclofen (LIORESAL) 10 mg tablet Take 1 tablet by mouth three times daily as needed. Disp: 90 tablet Rfl: 1 metFORMIN (GLUCOPHAGE) 1,000 mg tablet Take 1,000 mg by mouth twice daily. Disp: Rfl: RABEPRAZOLE SODIUM (ACIPHEX ORAL) Take 20 mg by mouth twice daily. Disp: Rfl: No current facility-administered medications for this visit. Allergies: Cats; Seasonal Allergies Weight History: See PLATE FILLER notes from initial program visit. Dietary Intake: 24 hour recall provided Breakfast- bagel w/ CC Lunch- nothing Dinner- beef, brussels sprouts, potatoes Snacks- potato chips Limitations of keeping a food record: none reported Food Allergies: none reported Frequency of fried foods: 1-2 times per week Frequency of high sugar foods: 1-2 times per week Frequency of snack-type foods: 1-2 times per week Frequency of caffeine/carbonated beverages: 1-2 times per week Frequency of dining out meals: 1-2 times per week Physical Activity: Physical conditions limiting activity: back/knee pain Current activity: Never READINESS TO LEARN Cognitive ability: Alert and oriented Motivation to learn: Interested Family support: Unable to assess - Family not present Instruction provided to: Patient Patient learns best by: Multiple Methods Factors affecting learning: None Physical limitations affecting learning: None Nutrition Diagnosis: Overweight Obesity, related to; decreased energy needs, as evidenced by BMI above normative standard for age and gender, excessive energy intake, infrequent, low-duration and/or low-intensity physical activity and inablitlity to maintain weight . Nutrition Intervention: Start to follow meal guidelines provided and work toward goals outlined below. Nutrition Monitoring AND Evaluation: Monthly supervised wt loss to evaluate weight loss efforts with pre-op goal weight of 397#. Required months of supervised weight loss per insurance: per PLATE FILLER notes Written information provided and reviewed: Healthy plate/menus Behavior Checklist Journal Chair Exercises What's in season h/o The setting was a shared nutrition?appointment in which he was seen individually with group observers. ?Consent to be seen in a group setting was obtained and signed. Goals reviewed and outlined below. ? Goals: Goals - formal exercise 2-7x/week as tolerated, goal of 30 minutes - Have 3 meals a day-protein source with each meal - journal daily and bring to all appointments Terri Marrero RD, LD PROGRESS Observed: 06/30/2018 Status: COMPLETED Source: [place] 1:30 PM [facility] OTHER [facility]US REPOSITORY O ID: [id number] Author: Samantha Loyd Service: (none) Author Type: Nurse Practitioner Type: Progress Notes Filed: 06/30/2018 2:05 PM Note Text: BARIATRIC SURGERY NEW PATIENT CONSULTATION HISTORY AND PHYSICAL Date: June 30, 2018 Time: 1:30 PM Name: Bentley Crawford CHIEF COMPLAINT: This is a 52 year old male with morbid obesity (Body mass index is 58.22 kg/m?.) who presents to clinic for consideration of bariatric surgery. HISTORY OF PRESENTING ILLNESS: Bentley Crawford presents today for consideration of bariatric surgery. Bentley Crawford has suffered from weight problems majority of his lifespan and has numerous attempts at weight loss. This individual has lost weight through diet and exercise attempts, however ultimately regained this weight. 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 However, after relocating/knee injury and no longer working he reports sudden weight gain. He reports a history of prediabetes and severe obstructive sleep apnea. He was recently diagnosed with prediabetes, he is currently on metformin and he does not recall his last hemoglobin A1c. He also has severe obstructive sleep apnea that he uses a CPAP with oxygen for, he has established with a supervisor accounting clerks. He is adherent with his sleep therapy. Otherwise he has no further cardiac and/or pulmonary disease. He has no significant chest pain and/or palpitations. However he does have a functional capacity less than 4. He will occasionally experience reflux with spicy foods, otherwise no severe acid reflux, regurgitation, dysphagia, nausea or vomiting. He also does suffer from severe osteoarthritis and frequently use NSAIDs. He does have a several psychological factors that would place him as a guarded candidate based on clinical presentation and interview. He has a very elevated affect in office today, frequently changing subjects and asking questions thus making the interview process fairly challenging and details cannot be confirmed in its accuracy. He also reports a history of anxiety, depression, bipolar. He is on several agents for his mental health he is established with psychiatry and psychology for management. He has no current, recent, remote attempts at self harm, hospitalizations. He's had no significant changes in his medications and/or treatment. PAST MEDICAL HISTORY Diagnosis Date - Anxiety - Bipolar affective disorder (HCC) - Depression - GERD (gastroesophageal reflux disease) - Hyperlipidemia - Obesity - RUSTY on CPAP takes oxygen (2.5 with oxygen concentrator) with nocturnal CPAP. - Overactive bladder - Pre-diabetes - Right knee meniscal tear PAST SURGICAL HISTORY Procedure Laterality Date - PAST SURGICAL HISTORY OF 2002 Lumbar laminectomy - PAST SURGICAL HISTORY OF R inguinal hernia repair - PAST SURGICAL HISTORY OF deviated septum repair - PAST SURGICAL HISTORY OF tonsillectomy FAMILY HISTORY Problem Relation Age of Onset - Ischemic Heart Disease Father SOCIAL HISTORY: Social History Substance Use Topics - Smoking status: Never Smoker - Smokeless tobacco: Never Used - Alcohol use No MEDICATIONS: Prior to Admission Medications: fluticasone propionate (FLONASE ALLERGY RELIEF NASAL) Use in the nose. lamoTRIgine (LAMICTAL) 200 mg tablet Take 1 tablet by mouth once daily. risperiDONE (RISPERDAL) 3 mg tablet Take 1 tablet by mouth twice daily. venlafaxine ER (EFFEXOR XR) 150 mg 24 hr capsule Take 2 capsules by mouth once daily. glimepiride (AMARYL) 1 mg tablet Take 1 mg by mouth daily with breakfast. UBIDECARENONE (CO Q-10 ORAL) Take by mouth. Cholecalciferol, Vitamin D3, (VITAMIN D-3) 2,000 unit cap Take 5,000 Units by mouth. Takes 2 pills at the same time. rosuvastatin (CRESTOR) 10 mg tablet Take 10 mg by mouth once daily. metFORMIN (GLUCOPHAGE) 1,000 mg tablet Take 1,000 mg by mouth twice daily. RABEPRAZOLE SODIUM (ACIPHEX ORAL) Take 20 mg by mouth twice daily. clonazePAM (KLONOPIN) 1 mg tablet Take 1 tablet by mouth once daily for 90 days. mometasone (NASONEX) 50 mcg/actuation nasal spray Use 2 Sprays in the nose once daily. oxaprozin (DAYPRO) 600 mg tablet Take 1 tablet twice daily or 2 tablets once daily with food as need for pain; no other NSAIDs while taking baclofen (LIORESAL) 10 mg tablet Take 1 tablet by mouth three times daily as needed. ALLERGIES Allergen Reactions - Cats Itching - Seasonal Allergies Other: See Comments Runny nose and itchy eyes REVIEW OF SYSTEMS: GENERAL: No weight loss, malaise or fevers HEENT: Negative for frequent or significant headaches, No changes in hearing or vision, no nose bleeds or other nasal problems NECK: Negative for lumps, goiter, pain and significant neck swelling RESPIRATORY: See HPI CARDIOVASCULAR: Negative for chest pain, leg swelling, CHF or palpitations GI: No nausea, vomiting, or diarrhea and No heartburn or reflux symptoms : No history of dysuria, frequency or incontinence MUSCULOSKELETAL: joint pain or swelling SKIN: Negative for lesions, rash, and itching PSYCH: See HPI HEMATOLOGY/LYMPHOLOGY: Negative for prolonged bleeding, bruising easily or swollen nodes ENDOCRINE: Negative for cold or heat intolerance, polyuria, polydipsia and goiter PHYSICAL EXAM: BP 148/72 Pulse 91 Ht 179.1 cm (5' 10.5) Wt (!) 186.7 kg (411 lb 9.6 oz) BMI 58.22 kg/m? GENERAL APPEARANCE: Pleasant, interacts appropriately and in no apparent distress. Appropriately groomed ENT: Oral mucosa pink without lesions/ulcerations, dentition intact. NECK: Supple without lymphadenopathy or thyromegaly ABDOMEN: Obese, soft, non-tender, no masses, no palpable hernia. MUSCULOSKELETAL: No joint deformities, good range of motion spine, hips, knees, and ankles. SKIN: Skin of normal texture, temperature without rashes/lesions/ulcerations. PSYCH: Oriented to person, place, time; Significantly elevated affect. Diagnostic Tests Reviewed for Today's Visit No new labs IMPRESSION AND PLAN: Bentley Crawford is a 52 year old male with the following diagnosis and co-morbidities: Body mass index is 58.22 kg/m?. This patient does meet the criteria for a surgical weight loss procedure according to NIH guidelines. Time was spent discussing both surgical options as well as he was provided with estimations in terms of percent excess weight loss. Over given factor surrounding his psychosocial history as well as clinical presentation in office today, he is certainly a guarded candidate until he completes his psychology evaluation. ? If Deemed suitable from surgery , Bentley Crawford complete a 6 month trial of diet and exercise. Therefore, Bentley Crawford was given a 15 pound weight loss goal, received 10-15 minutes of dietary counseling in office today, as well as was scheduled for our shared education class. He will also need to be cleared by psychology. ASSESSMENT/PLAN: 1. Morbid obesity (HCC) - ICD9: 278.01, ICD10: E66.01 (primary diagnosis) I did ask him to clarify his PCP 2. Bipolar affective disorder, remission status unspecified (HCC) - ICD9: 296.80, ICD10: F31.9 Await recommendations from psychology before pursuing further clearance 3. RUSTY on CPAP - ICD9: 327.23, V46.8, ICD10: G47.33, Z99.89 With 02 Will need pulmonary clearance before surgery Also given his severe obesity, severe obstructive sleep apnea requiring oxygen therapy, as well as reduced functional capacity, if deemed suitable for a psychology perspective, he will also need to be risk stratified by cardiology before surgery. Follow up with me and our dietitian in 1 month to review pulmonary recommendations from psychology Samantha Loyd APRN.ORTHOPEDIC MECHANIC Of the 60 minutes spent with the patient, >50% counseling and or coordinating care. This note was generated using voice recognition technology and may contain grammatical errors. FINGER(S) MIN 2 VIEWS Observed: 06/29/2018 Status: F Source: [facility] 12:48 PM [facility] REPOSITORY [facility] Imaging Services [address] [place] [address] Finger(s) Min 2 Views MR#: [id number] Acct: [id number] Name: BENTLEY CRAWFORD Rep #: [id number] : 1965 M 52 From: Helen Marie MD PCP: Kamlesh Desouza MD Status: REG CLI Study: Finger(s) Min 2 Views Date of Exam: 06/29/18 Exam# [id number] Ordering Dr: Paige Garcia DO STUDY: X-RAY - LEFT HAND, ATTENTION second FINGER REASON FOR EXAM: Male, 52 years old. Foreign body distal tip of finger TECHNIQUE: 3 view(s) of the finger were obtained. COMPARISON: None. FINDINGS: Normal metacarpal head. Normal metacarpophalangeal joint. Normal proximal phalanx. Normal middle phalanx. Normal distal phalanx. Normal proximal interphalangeal joint. Normal distal interphalangeal joint. RAD/Finger(s) Min 2 Views IMPRESSION: Normal x-ray examination of the finger. There is no radiopaque foreign body. Electronically Signed: Helen Marie MD at 3:12 EST , Service support , CC: Paige Garcia DO; Kamlesh Desouza MD Cut Lace Machine Operator: Signed CNOV Observed: 06/27/2018 Status: COMPLETED Source: [place] 1:30 PM CLINIC OTHER CAMPUS REPOSITORY Office Visit ([facility]) BENTLEY CRAWFORD ([id number]) 1965 M Date Time Provider Department 06/27/18 1:30 PM SAMANTHA LOYD (ORTHOPEDIC MECHANIC) [facility] During your visit today, we recorded the following information about you: Pulse Blood pressure Weight Height 91/minute 148/72 186.7 kg 1.791 m Samantha Loyd APRN.CNP 06/27/2018 2:25 PM Signed Welcome to the first step towards your new healthy life! As we discussed, please review the bariatric Center program and contract. Review with the handouts that were given to an explained to include; the plate diet, food journal, follow-up schedule, bariatric patient flowsheet, and support group flyer with upcoming dates. Please incorporate efforts at eating 3 meals per day with each meal lasting approximately the longer than 30 minutes. Anything longer would be considered grazing. Also, as recommended in incorporating exercise 4-5 times per week for 30 minutes. This will help you achieve your presurgical weight loss goal. Please attend educational class scheduled. Please schedule your appointment with our psychologist for your evaluation as directed. Please complete any additional orders and/or testing as directed by your provider. You will see us monthly for medically supervised weight loss and we'll progress you towards surgery. Samantha Loyd APRN.CNP 06/30/2018 2:05 PM Signed BARIATRIC SURGERY NEW PATIENT CONSULTATION HISTORY AND PHYSICAL Date: June 30, 2018 Time: 1:30 PM Name: Bentley Crawford CHIEF COMPLAINT: This is a 52 year old male with morbid obesity (Body mass index is 58.22 kg/m?.) who presents to clinic for consideration of bariatric surgery. HISTORY OF PRESENTING ILLNESS: Bentley Crawford presents today for consideration of bariatric surgery. Bentley Crawford has suffered from weight problems majority of his lifespan and has numerous attempts at weight loss. This individual has lost weight through diet and exercise attempts, however ultimately regained this weight. 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 However, after relocating/knee injury and no longer working he reports sudden weight gain. He reports a history of prediabetes and severe obstructive sleep apnea. He was recently diagnosed with prediabetes, he is currently on metformin and he does not recall his last hemoglobin A1c. He also has severe obstructive sleep apnea that he uses a CPAP with oxygen for, he has established with a supervisor accounting clerks. He is adherent with his sleep therapy. Otherwise he has no further cardiac and/or pulmonary disease. He has no significant chest pain and/or palpitations. However he does have a functional capacity less than 4. He will occasionally experience reflux with spicy foods, otherwise no severe acid reflux, regurgitation, dysphagia, nausea or vomiting. He also does suffer from severe osteoarthritis and frequently use NSAIDs. He does have a several psychological factors that would place him as a guarded candidate based on clinical presentation and interview. He has a very elevated affect in office today, frequently changing subjects and asking questions thus making the interview process fairly challenging and details cannot be confirmed in its accuracy. He also reports a history of anxiety, depression, bipolar. He is on several agents for his mental health he is established with psychiatry and psychology for management. He has no current, recent, remote attempts at self harm, hospitalizations. He's had no significant changes in his medications and/or treatment. PAST MEDICAL HISTORY Diagnosis Date - Anxiety - Bipolar affective disorder (HCC) - Depression - GERD (gastroesophageal reflux disease) - Hyperlipidemia - Obesity - RUSTY on CPAP takes oxygen (2.5 with oxygen concentrator) with nocturnal CPAP. - Overactive bladder - Pre-diabetes - Right knee meniscal tear PAST SURGICAL HISTORY Procedure Laterality Date - PAST SURGICAL HISTORY OF 2002 Lumbar laminectomy - PAST SURGICAL HISTORY OF R inguinal hernia repair - PAST SURGICAL HISTORY OF deviated septum repair - PAST SURGICAL HISTORY OF tonsillectomy FAMILY HISTORY Problem Relation Age of Onset - Ischemic Heart Disease Father SOCIAL HISTORY: Social History Substance Use Topics - Smoking status: Never Smoker - Smokeless tobacco: Never Used - Alcohol use No MEDICATIONS: Prior to Admission Medications: fluticasone propionate (FLONASE ALLERGY RELIEF NASAL) Use in the nose. lamoTRIgine (LAMICTAL) 200 mg tablet Take 1 tablet by mouth once daily. risperiDONE (RISPERDAL) 3 mg tablet Take 1 tablet by mouth twice daily. venlafaxine ER (EFFEXOR XR) 150 mg 24 hr capsule Take 2 capsules by mouth once daily. glimepiride (AMARYL) 1 mg tablet Take 1 mg by mouth daily with breakfast. UBIDECARENONE (CO Q-10 ORAL) Take by mouth. Cholecalciferol, Vitamin D3, (VITAMIN D-3) 2,000 unit cap Take 5,000 Units by mouth. Takes 2 pills at the same time. rosuvastatin (CRESTOR) 10 mg tablet Take 10 mg by mouth once daily. metFORMIN (GLUCOPHAGE) 1,000 mg tablet Take 1,000 mg by mouth twice daily. RABEPRAZOLE SODIUM (ACIPHEX ORAL) Take 20 mg by mouth twice daily. clonazePAM (KLONOPIN) 1 mg tablet Take 1 tablet by mouth once daily for 90 days. mometasone (NASONEX) 50 mcg/actuation nasal spray Use 2 Sprays in the nose once daily. oxaprozin (DAYPRO) 600 mg tablet Take 1 tablet twice daily or 2 tablets once daily with food as need for pain; no other NSAIDs while taking baclofen (LIORESAL) 10 mg tablet Take 1 tablet by mouth three times daily as needed. ALLERGIES Allergen Reactions - Cats Itching - Seasonal Allergies Other: See Comments Runny nose and itchy eyes REVIEW OF SYSTEMS: GENERAL: No weight loss, malaise or fevers HEENT: Negative for frequent or significant headaches, No changes in hearing or vision, no nose bleeds or other nasal problems NECK: Negative for lumps, goiter, pain and significant neck swelling RESPIRATORY: See HPI CARDIOVASCULAR: Negative for chest pain, leg swelling, CHF or palpitations GI: No nausea, vomiting, or diarrhea and No heartburn or reflux symptoms : No history of dysuria, frequency or incontinence MUSCULOSKELETAL: joint pain or swelling SKIN: Negative for lesions, rash, and itching PSYCH: See HPI HEMATOLOGY/LYMPHOLOGY: Negative for prolonged bleeding, bruising easily or swollen nodes ENDOCRINE: Negative for cold or heat intolerance, polyuria, polydipsia and goiter PHYSICAL EXAM: BP 148/72 Pulse 91 Ht 179.1 cm (5' 10.5) Wt (!) 186.7 kg (411 lb 9.6 oz) BMI 58.22 kg/m? GENERAL APPEARANCE: Pleasant, interacts appropriately and in no apparent distress. Appropriately groomed ENT: Oral mucosa pink without lesions/ulcerations, dentition intact. NECK: Supple without lymphadenopathy or thyromegaly ABDOMEN: Obese, soft, non-tender, no masses, no palpable hernia. MUSCULOSKELETAL: No joint deformities, good range of motion spine, hips, knees, and ankles. SKIN: Skin of normal texture, temperature without rashes/lesions/ulcerations. PSYCH: Oriented to person, place, time; Significantly elevated affect. Diagnostic Tests Reviewed for Today's Visit No new labs IMPRESSION AND PLAN: Bentley Crawford is a 52 year old male with the following diagnosis and co-morbidities: Body mass index is 58.22 kg/m?. This patient does meet the criteria for a surgical weight loss procedure according to NIH guidelines. Time was spent discussing both surgical options as well as he was provided with estimations in terms of percent excess weight loss. Over given factor surrounding his psychosocial history as well as clinical presentation in office today, he is certainly a guarded candidate until he completes his psychology evaluation. ? If Deemed suitable from surgery , Bentley Crawford complete a 6 month trial of diet and exercise. Therefore, Bentley Crawford was given a 15 pound weight loss goal, received 10-15 minutes of dietary counseling in office today, as well as was scheduled for our shared education class. He will also need to be cleared by psychology. ASSESSMENT/PLAN: 1. Morbid obesity (HCC) - ICD9: 278.01, ICD10: E66.01 (primary diagnosis) I did ask him to clarify his PCP 2. Bipolar affective disorder, remission status unspecified (HCC) - ICD9: 296.80, ICD10: F31.9 Await recommendations from psychology before pursuing further clearance 3. RUSTY on CPAP - ICD9: 327.23, V46.8, ICD10: G47.33, Z99.89 With 02 Will need pulmonary clearance before surgery Also given his severe obesity, severe obstructive sleep apnea requiring oxygen therapy, as well as reduced functional capacity, if deemed suitable for a psychology perspective, he will also need to be risk stratified by cardiology before surgery. Follow up with me and our dietitian in 1 month to review pulmonary recommendations from psychology Samantha Loyd APRN.ORTHOPEDIC MECHANIC Of the 60 minutes spent with the patient, >50% counseling and or coordinating care. This note was generated using voice recognition technology and may contain grammatical errors. Referring Provider: SELF [[id number]] Allergies As of Date: 06/27/2018 Noted Allergy Reaction CATS 04/03/2014 9 - Itching SEASONAL ALLERGIES 09/17/2014 14 - Other: See Comments Comments: Runny nose and itchy eyes Date Reviewed: 06/27/2018 Reviewed by: Piedad Huber - Fully Assessed Reason for Visit: Consult [173] Primary Visit Diagnosis:Morbid obesity (HCC) [E66.01] Other Visit Diagnoses:Bipolar affective disorder, remission status unspecified ([facility]) [F31.9] RUSTY on CPAP [G47.33, Z99.89] Prescriptions as of 06/27/2018 Sig: FLONASE ALLERGY RELIEF NASAL Use in the nose. LAMOTRIGINE 200 MG TABLET Take 1 tablet by mouth once d* RISPERIDONE 3 MG TABLET Take 1 tablet by mouth twice * VENLAFAXINE ER 150 MG CAPSULE* Take 2 capsules by mouth once* GLIMEPIRIDE 1 MG TABLET Take 1 mg by mouth daily with* CO Q-10 ORAL Take by mouth. CHOLECALCIFEROL (VITAMIN D3) * Take 5,000 Units by mouth. 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] INVALID FOR* Referred otalgia [H92.09] INVALID FOR* Urinary urgency [R39.15] INVALID FOR* Urge incontinence [N39.41] INVALID FOR* S/P left knee arthroscopy and partial medial me*INVALID FOR* Scrotal skin lesion [N50.9] INVALID FOR* Right lateral epicondylitis [M77.11] INVALID FOR* Elbow pain [M25.529] INVALID FOR* Pain in right wrist [M25.531] INVALID FOR* Soft tissue mass [M79.9] INVALID FOR* Neuritis [M79.2] INVALID FOR* Bilateral low back pain with sciatica [M54.40] INVALID FOR*03/16/2016 Morbid obesity due to excess calories (HCC) [E6*INVALID FOR*03/16/2016 Post laminectomy syndrome [M96.1] INVALID FOR* Chronic bilateral low back pain with sciatica [*INVALID FOR* Morbid obesity (HCC) [E66.01] INVALID FOR* Other instructions from your clinician: Welcome to the first step towards your new healthy life! As we discussed, please review the bariatric Center program and contract. Review with the handouts that were given to an explained to include; the plate diet, food journal, follow-up schedule, bariatric patient flowsheet, and support group flyer with upcoming dates. Please incorporate efforts at eating 3 meals per day with each meal lasting approximately the longer than 30 minutes. Anything longer would be considered grazing. Also, as recommended in incorporating exercise 4-5 times per week for 30 minutes. This will help you achieve your presurgical weight loss goal. Please attend educational class scheduled. Please schedule your appointment with our psychologist for your evaluation as directed. Please complete any additional orders and/or testing as directed by your provider. You will see us monthly for medically supervised weight loss and we'll progress you towards surgery. Disposition: Return in about 1 month (around 07/27/2018) for PLATE FILLER, 1:1. Follow-up and Disposition History Recorded Questionnaire: AG GEN SURG BARIATRIC PRE-OP VISITS WEIGHT (pounds) (PRE OP) -> 411.6 HEIGHT (inches) -> 70.5 PREOP BMI -> 58 PREOP IDEAL BODY WEIGHT -> 74 GOAL WEIGHT -> 397 Encounter Status:Closed by SAMANTHA OLMEDO on 06/30/18 PROGRESS Observed: 06/26/2018 Status: COMPLETED Source: [place] 4:10 PM CLINIC OTHER CAMPUS REPOSITORY HNO ID: [id number] Author: Loli Amaral Service: (none) Author Type: Physician Type: Progress Notes Filed: 06/26/2018 5:25 PM Note Text: 06/26/2018 Benltey Crawford : 1965 Aric TIME: 4:10-5:[address] at: Office Procedure Code: [id number] CC/Interim History: Patient reported continued high levels of symptoms of anxiety, OCD, and depression that interfere with his daily life. He explained that he spends approximately 20 hours in bed a day with severely broken sleep. He reported very low motivation to do other activities, including bathing. Topics/themes discussed: Stressors/coping methods: Goes to bed around 9 or 10 PM, stays awake in bed and does not fall asleep until approximately 2 AM, very broken sleep due to BiPAP mask not fitting properly, wakes up briefly to get son ready for school, then returns to bed and sleeps until afternoon. Acknowledges going to bed as part of avoidance coping. Reported lots of rumination in bed. Treatments/interventions/techniques: Interpretation: Depression and avoidance symptoms of anxiety or making you want to stay in bed but staying in bed is also perpetuating your insomnia, Behavioral: Sleep schedule TIB equals 9 hours, discussed what patient will do outside of bed when he is awake and where he will sit in the house, Homework given: Sleep hygiene and sleep schedule 1 AM until 10 AM, Reframing: Sleep regulation and behavior activation will be treating multiple treatment targets, you cannot choose depressive symptoms but you can choose how you cope with them, and Psychoeducation: Sleep hygiene, reduced TIB awake improve sleep, 3 peas of insomnia, and support. Treatment Targets: Anxiety- rumination and avoidance coping- sleeps. Depression- no motivation, sleeps all day, not motivated to do ADLs / shower, over eating. OCD- checking the lights, checking the stove, make sure the knobs are off in the car, tapping the car wipers. OCD sx cause tension, but no disaster fear. Some superstition about checking the clock at meaningful times. Plan: behavior activation, exposure with response prevention. Assessments: 1. Symptoms - Change since last evaluation? No Target Symptom Anxiety = 03/10 . No change Target Symptom Depression = 04/10 . No change Target Symptom OCD Behavior = 05/10 . No change Target Symptom OCD Thoughts = 04/10 . No change PSYCHOLOGY SCREENING/TESTING: PHQ-9= 16, ((15-19) moderately severe depression). JESSEE-7 = 18 ((15-21) severe anxiety). (positive is JESSEE=8 or PHQ=9) 2. Mood:Depressed Affect: Restricted 3. Mental status: Normal 4. Suicidal/violence risk: None 5. Sleep quality: Restless/broken, Delayed onset and Oversleeps 6. Treatment participation: Active/eager 7. Treatment compliance: Partial 8. Response to treatment: As expected 9. Other observations/evaluations: None Changes to diagnoses: None, ICD-10: F31.9, F41.0, F42.9 Changes to treatment plan: None, CBT- Anxiety / depression plus behavior activation, exposure, and sleep hygiene If treatment was changed, indicate rationale, alternatives considered/rejected/selected in notes. Follow-ups: Next appointment is scheduled for:2-3 weeks Loli Amaral, PhD This is a strictly confidential patient medical record. Redisclosure or transfer is expressly prohibited by law. This note was dictated using voice recognition software. Minor errors in jinriksha driver may be present. HOSP Observed: 06/26/2018 Status: COMPLETED Source: [place] 4:00 PM CLINIC OTHER [facility] REPOSITORY Psych Office Visit (AGPSYACC) BENTLEY CRAWFORD ([id number]) 1965 Date Time Provider Department 06/26/18 4:00 PM LOLI AMARAL AGPSYACC During your visit today, we recorded the following information about you: Loli Amaral, PhD 06/26/2018 5:25 PM Signed Sensitive Note 06/26/2018 Bentley Crawford : 1965 Aric TIME: 4:10-5:05 [address] took [address] at: Office Procedure Code: [id number] CC/Interim History: Patient reported continued high levels of symptoms of anxiety, OCD, and depression that interfere with his daily life. He explained that he spends approximately 20 hours in bed a day with severely broken sleep. He reported very low motivation to do other activities, including bathing. Topics/themes discussed: Stressors/coping methods: Goes to bed around 9 or 10 PM, stays awake in bed and does not fall asleep until approximately 2 AM, very broken sleep due to BiPAP mask not fitting properly, wakes up briefly to get son ready for school, then returns to bed and sleeps until afternoon. Acknowledges going to bed as part of avoidance coping. Reported lots of rumination in bed. Treatments/interventions/techniques: Interpretation: Depression and avoidance symptoms of anxiety or making you want to stay in bed but staying in bed is also perpetuating your insomnia, Behavioral: Sleep schedule TIB equals 9 hours, discussed what patient will do outside of bed when he is awake and where he will sit in the house, Homework given: Sleep hygiene and sleep schedule 1 AM until 10 AM, Reframing: Sleep regulation and behavior activation will be treating multiple treatment targets, you cannot choose depressive symptoms but you can choose how you cope with them, and Psychoeducation: Sleep hygiene, reduced TIB awake improve sleep, 3 peas of insomnia, and support. Treatment Targets: Anxiety- rumination and avoidance coping- sleeps. Depression- no motivation, sleeps all day, not motivated to do ADLs / shower, over eating. OCD- checking the lights, checking the stove, make sure the knobs are off in the car, tapping the car wipers. OCD sx cause tension, but no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 visualized lower thoracic bony canal and foramina are patent. T12-L1: Canal and foramina are patent. L1-L2: Canal and foramina are patent. L2-L3: Canal and foramina are patent L3-L4: Canal and foramina are patent L4-L5: Canal and foramina are patent. Mild hypertrophic changes in the facet joints. L5-S1: Canal and foramina are patent. Mild hypertrophic changes in the facet joints. Sacrum and iliac wings: The visualized sacrum and iliac wings are within normal limits. IMPRESSION: MILD DEGENERATIVE FACET DISEASE IN LOWER LUMBAR SPINE. Cut Lace Machine Operator: CONCEPCIÓN Transcribe Date/Time: Dec 01 2017 2:01P Dictated by : DULCE THORNE MD This examination was interpreted and the report reviewed and electronically signed by: DULCE THORNE MD on Dec 01 2017 2:03PM EST [id number] PULMONARY VISIT REPORT Observed: 11/01/2017 Status: F Source: [place] 2:59 PM [facility] REPOSITORY Pulmonary Medicine of [address] [place] [address] OFFICE VISIT Date of Service: 11/01/17 MR#: [id number] Acct: [id number] Name: BENTLEY CRAWFORD Rep #: [id number] : 1965 Provider: Fernando Poole D.O. Age/Sex: 52/M [facility] Status: Signed Assessment AND Plan 1. RUSTY (obstructive sleep apnea) G47.33 Plan The patient has known long-standing obstructive sleep apnea, for which she is currently on an auto BiPAP. His compliance report indicates the patient is utilizing his nocturnal Pap therapy on a regular basis. He does appear to be benefiting symptomatically from the use of his BiPAP. We will plan to continue the aforementioned therapy without change. Should the patient continued to have significant air leaks, could consider referral to Pap education. 2. Morbid obesity E66.01 Plan Weight loss through dietary modification and a graded exercise regimen is strongly encouraged. Plan Detail Follow Up 3 Months (CSM) HPI Sleep Problems (pedi) Associated symptoms: Denies weight loss, Denies diarrhea, Denies constipation HPI Comments Details: The patient there is a-year-old male presents to the clinic today and referral for evaluation of obstructive sleep apnea. Per patient account, he has a long-standing history of obstructive sleep apnea. He initially underwent a CPAP titration study in November 2013. He was initially placed on CPAP therapy, but then later had to be transitioned to BiPAP. He was eventually placed on AutoPap with an IPAP max of 22 and EPAP max of 17. The patient was previously being followed by Dr. Cardona in [place]. Due to insurance constraints, the patient had to find a new provider. The patient reports compliance with the aforementioned therapy. In fact, his [employer] compliance report was personally reviewed at today's office visit. The patient has demonstrated 100% compliance over the last 90 days. He is sleeping on average just over 10 hours per night. He has a residual AHI noted to be 2.2. The patient does report occasional air leaks due to his current facial hair. He does utilize a 4 L/min supplemental oxygen bleed in. He does report improved sleep quality since being on his BiPAP. He currently reports the presence of restorative sleep and a lack of daytime hypersomnolence. He denies the presence of daytime napping. He is currently utilizing a full facemask and states that he orders his CPAP supplies offline, as it is more cost effective. The patient reports that his weight has been stable. 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 He is asking for a medical letter indicating that he is compliant with the use of his home BiPAP. He reports no significant shortness of breath. The patient is a lifelong non-smoker. He reports no known cardiac issues. He denies fevers, chills or night sweats. He denies chest pain, dizziness or lightheadedness. Intake Vital Signs11/01/17 Height 5 ft 11 in 11/01/17 Weight: 404 lb Intake Visit Reasons: Sleep problems Accompanied by: Self Allergies No Known Allergies Allergy (Verified 11/01/17 11:05) Medications cholecalciferol (vitamin D3) 3,000 unit tablet 3,000 unit PO QDAY 11/01/17 [History Confirmed 11/01/17] coenzyme Q10 100 mg capsule 100 mg PO QDAY 11/01/17 [History Confirmed 11/01/17] glimepiride 1 mg tablet 1 mg PO BID tab 11/01/17 [History Confirmed 11/01/17] lamotrigine 200 mg tablet PO 11/01/17 [History Confirmed 11/01/17] metformin 500 mg tablet 1,000 mg PO BID tab 11/01/17 [History Confirmed 11/01/17] mometasone 50 mcg/actuation nasal spray 2 spray INTRANASAL ONCE g 11/01/17 [History Confirmed 11/01/17] rabeprazole 20 mg tablet,delayed release 20 mg PO BID 11/01/17 [History Confirmed 11/01/17] risperidone 3 mg tablet 3 mg PO BID tab 11/01/17 [History Confirmed 11/01/17] rosuvastatin 10 mg tablet 10 mg PO ONCE 11/01/17 [History Confirmed 11/01/17] venlafaxine ER 150 mg capsule,extended release 24 hr 150 mg PO ONCE 11/01/17 [History Confirmed 11/01/17] [facility] Medical History Reflux esophagitis (Chronic) Eustachian tube disorder (Acute) Deviated septum (Acute) Nasal turbinate hypertrophy (Acute) Temporomandibular disorder (Acute) Head and face pain (Acute) Allergic rhinitis (Chronic) RUSTY (obstructive sleep apnea) (Chronic) Surgical History History of nasal surgery (Resolved) History of back surgery (Resolved) H/O abdominal surgery (Resolved) Family History Unknown Heart disease Diabetes Cancer Social History Smoking Status: Never smoker second hand exposure: No alcohol intake: never substance use type: does not use Review of Systems Const CONSTITUTIONAL: Positive fatigue; negative anorexia, body ache, chills, daytime sleepiness, fever(s), night sweats, oral thrush, stops breathing during sleep, weight loss, sleeping in chair, weight loss, weight gain, frequent colds, seasonal allergies, other, headache(s) or orthopnea EETM Ear Nose Throat Mouth: Positive hearing normal; negative hard of hearing, hoarseness, dry mouth in morning, change in vision, itchy eyes, eye pain, swallowing Difficulty, ear pain, nose bleed, headache(s), mouth pain, nasal congestion, nasal discharge, post nasal drip, sinus pain, sinus pressure, sore throat or other Cardio Cardiovascular: Negative chest pain, chest pain at rest, chest pain with activity, irregular heart rhythm, edema, shortness of breath when lying down, palpitations, murmur or other Resp Respiratory: Positive as per HPI; negative shortness of breath, pain with cough, wheezing, chest congestion, cough, chest tightness, pain on inspiration, inhalers, increase use of rescue inhalers, snoring, apnea or other Gastro Gastrointestional: Negative bloody stools, change in appetite, difficulty swallowing, reflux, hematemesis, melena stool, loose stool, constipation or other Genitourinary: Negative blood in urine, nocturia, pain with urination or other Musc Musculoskeletal: Negative body pain, back pain, neck pain or other Skin/Breast Skin/Breast: Negative dry skin, itching, rash, unusual bruising, breast lump or other Neuro Neurological: Negative restless legs, confusion, weakness or other Psych Psychocological: Negative abnormal sleep pattern, anxiety, thoughts of hurting self/others, hopelessness or other Lymph Lymphatic: Negative easy bleeding, easy bruising, swollen lymph nodes or other Exam Const Constitutional: Positive conversant, cooperative, in no acute respiratory distress, well developed, well nourished, good hygiene and obese Anxious in appearance Head Head: Positive normocephalic and atraumatic; negative cyanosis of lips/distal nose Eyes Eye: Positive clear conjunctiva; negative nystagmus or scleral abnormality Ears Ear: Positive hearing normal and external ears normal; negative hard of hearing Nose Nose: Positive external nose normal; negative epistaxis Mouth Mouth: Positive oral mucosae normal and crowded posterior oropharynx; negative no lesions or post nasal drip Mallampati Score: III: Mallampati Score Neck Neck: Positive normal visual inspection, trachea midline and male neck greater than 43 cm (17 in); negative lymphadenopathy Chest Wall Chest: Positive symmetric chest movement Normal AP diameter. Resp Distant breath sounds secondary to body habitus. Poor patient dependent inspiratory effort with corresponding diminished air movement bilaterally. Cardio Cardiac: Positive regular rate, regular rhythm, S1 normal and S2 normal; negative rub, gallop or murmur GI GI: Positive normal bowel sounds and obese Soft without distention Genitourinary: Positive deferred [facility] Musculoskeletal: Positive steady gait Skin Pulmonary Skin Exam: Positive intact; negative lesion, ulcers, dermal atrophy or rash Pulses Pulse: Yes Pedal pulses present: Extremities Extremities: No clubbing, No cyanosis, Yes edema, Yes stasis dermatitis Neuro Neurologic: Yes conversant, Yes no focal neuro deficits, Yes cooperative Lymph Lymphatic: No lymphadenopathy Psych Appearance: Positive grossly normal Mental Status: Positive mental status grossly normal Mood: Positive congruent mood Affect: Positive normal affect Coding Level of Care Code Off vis,new,level 4 Diagnoses RUSTY (obstructive sleep apnea) G47.33 Morbid obesity E66.01 11/01/17 1459 <Electronically signed by Fernando Poole DO> Date Fernando Poole DO Cosigner Signature: Date (if applicable) CC: Sukh Heard Observed: 10/03/2017 Status: COMPLETED Source: [place] 12:00 AM [facility] REPOSITORY Telephone (SPNSMN) BENTLEY CRAWFORD ([id number]) 1965 M Date Time Provider Department 10/03/17 ERIC HANSEN SPNSMN During your visit today, we recorded the following information about you: Mitra He [facility] 10/03/2017 4:08 PM Signed Pt calling to inquire of forms and their completion Pt states the forms were C Pls advise Eric Hansen MD 10/03/2017 4:32 PM Signed Have we received? Eric Hansen MD [facility] 10/04/2017 2:37 PM Signed Called patient to request that the forms are sent again. We have not received them. Left message for patient to call back Allergies As of Date: 10/03/2017 Noted Allergy Reaction CATS 04/03/2014 9 - Itching SEASONAL ALLERGIES 09/17/2014 14 - Other: See Comments Comments: Runny nose and itchy eyes Date Reviewed: 09/27/2017 Reviewed by: Samina Andrea Ma - Fully Assessed Reason for Visit: [facility] Paperwork [Other] Prescriptions as of 10/03/2017 Sig: GLIMEPIRIDE 1 MG TABLET Take 1 mg by mouth daily with* CO Q-10 ORAL Take by mouth. CHOLECALCIFEROL (VITAMIN D3) * Take by mouth. Takes 2 pills* MOMETASONE 50 MCG/ACTUATION N* Use 2 Sprays in the nose once* ROSUVASTATIN 10 MG TABLET Take 10 mg by mouth once bryanna* OXAPROZIN 600 MG TABLET Take 1 tablet twice daily or * BACLOFEN 10 MG TABLET Take 1 tablet by mouth three * METFORMIN 1,000 MG TABLET Take 1,000 mg by mouth twice * EFFEXOR XR ORAL Take 150 mg by mouth twice da* RISPERIDONE 3 MG TABLET Take 3 mg by mouth twice bryanna* ACIPHEX ORAL Take 20 mg by mouth twice kitty* LAMICTAL ORAL Take 200 mg by mouth once kitty* Problem List As Of Date 10/03/2017 Noted Resolved Tear of medial cartilage or meniscus of knee, c*INVALID FOR* S/P right knee arthroscopy, partial medial meni*INVALID FOR* 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] INVALID FOR* Referred otalgia [H92.09] INVALID FOR* Urinary urgency [R39.15] INVALID FOR* Urge incontinence [N39.41] INVALID FOR* S/P left knee arthroscopy and partial medial me*INVALID FOR* Scrotal skin lesion [N50.9] INVALID FOR* Right lateral epicondylitis [M77.11] INVALID FOR* Elbow pain [M25.529] INVALID FOR* Pain in right wrist [M25.531] INVALID FOR* Soft tissue mass [M79.9] INVALID FOR* Neuritis [M79.2] INVALID FOR* Bilateral low back pain with sciatica [M54.40] INVALID FOR*03/16/2016 Morbid obesity due to excess calories (HCC) [E6*INVALID FOR*03/16/2016 Post laminectomy syndrome [M96.1] INVALID FOR* Chronic bilateral low back pain with sciatica [*INVALID FOR* Morbid obesity (HCC) [E66.01] INVALID FOR* Encounter Status:Closed by MITRA SCHUMACHER on 10/04/17 PROGRESS Observed: 09/27/2017 Status: COMPLETED Source: [place] 11:34 AM [facility] HNO ID: [id number] Author: Eric Hansen Service: (none) Author Type: Physician Type: Progress Notes Filed: 09/27/2017 1:12 PM Note Text: [facility] Established Visit Last Seen: 01/2017 CC: low back pain HPI: Mr. Crawford is a pleasant 51 year old male seen in follow- up for chronic lumbar issues, h/o lumbar surgery in 2002. He notes this is a workman's compensation case. Patient was last seen 01/2017. Please refer to that note for additional details. Patient notes that he is feeling same. Received message from radiology here-CT recommended instead of lumbar MRI. Patient notes he is unable to get CT due to insurance issues and therefore scheduled appointment today. Low back pain, notes limiting activity, varies in intensity. Constant. R>L buttock pain, into the groin, into the L lateral thigh to the knee. Denies below the knee. LE symptoms are intermittent and noted when low back pain is severe. Low back pain>LE pain. 80% low back. Worse with movement, coughing sneezing. Tried PT w/o benefit. Notes worsening. Went 8 times-completed Apr/May 2017. On baclofen and daypro. Ongoing chronic bladder issues-s/p stimulator, seeing urology. He notes current symptoms are similar symptoms to those he had surgery for, notes not much benefit with the surgery. Pain is a 7/10. Allergies: ALLERGIES Allergen Reactions - Cats Itching - Seasonal Allergies Other: See Comments Runny nose and itchy eyes Current Outpatient Prescriptions: glimepiride (AMARYL) 1 mg tablet Take 1 mg by mouth daily with breakfast. UBIDECARENONE (CO Q-10 ORAL) Take by mouth. Cholecalciferol, Vitamin D3, (VITAMIN D-3) 2,000 unit cap Take by mouth. Takes 2 pills at the same time. mometasone (NASONEX) 50 mcg/actuation nasal spray Use 2 Sprays in the nose once daily. rosuvastatin (CRESTOR) 10 mg tablet Take 10 mg by mouth once daily. oxaprozin (DAYPRO) 600 mg tablet Take 1 tablet twice daily or 2 tablets once daily with food as need for pain; no other NSAIDs while taking baclofen (LIORESAL) 10 mg tablet Take 1 tablet by mouth three times daily as needed. metFORMIN (GLUCOPHAGE) 1,000 mg tablet Take 1,000 mg by mouth twice daily. VENLAFAXINE HCL (EFFEXOR XR ORAL) Take 150 mg by mouth twice daily. risperiDONE (RISPERDAL) 3 mg tablet Take 3 mg by mouth twice daily. RABEPRAZOLE SODIUM (ACIPHEX ORAL) Take 20 mg by mouth twice daily. LAMOTRIGINE (LAMICTAL ORAL) Take 200 mg by mouth once daily. No current facility-administered medications for this visit. ROS: Red Flags: Patient denies unintentional weight loss, fevers, chills, or night sweats, ever having cancer and pain being worse at night. +sleepng difficulties-has sleep apnea No interval change in PMHX since last visit. Physical Examination: BP 149/67 Pulse 87 Resp 18 Ht 5' 11 (1.80m) Wt 400 lb (181.4kg) BMI 55.81 kg/(m2). General: NAD, pleasant, greater than ideal BMI-which limits exam Lungs: Symmetric chest expansion Gait: normal Palpation: diffuse lumbar tenderness to palpation Strength: Bilateral LE strength appears normal Reflexes: Bilateral patella reflexes are normal, decreased at the ankle. Neuro: Plantar response is downgoing. Peripheral Vascular: No obvious extremity swelling in all 4 extremities. Appearance of Skin: Skin inspection of the trunk, bilateral upper and lower extremities is unremarkable except for well healed incision. Radiological Review: Lumbar x-rays reviewed-facet degenerative changes Impression: #1. Chronic low back pain>LE pain. 80% low back pain. H/o lumbar surgery in 2002 w/o benefit per patient. Has lumbar spondylosis-suspect facet arthropathy contributing #2. Greater than ideal BMI Plan: 1. Lumbar CT scan for additional evaluation. Ongoing pain despite PT. Cannot have MRI s/p bladder stimulator. 2. Importance of maintaining an ideal BMI for back health was discussed. May consider bariatric consult-declines at this time due to insurance issues. Encouraged discuss with PCP. 3. F/U: call for CT results, as needed. Continue care with PCP and urology. May consider BOT/CPRP. The patient is instructed to call/seek urgent medical care with worsening pain or change of neurological status. There are no barriers to patient education identified. Management options were discussed in detail. The patient is in agreement with the plan as outlined above and verbalized understanding. Eric Hansen MD HOSP Observed: 08/28/2017 Status: COMPLETED Source: [place] 12:00 AM [facility] Get Medical Advice (SPNMMN) BENTLEY CRAWFORD ([id number]) 1965 M Date Time Provider Department 08/28/17 ERIC HANSEN SPNMMN During your visit today, we recorded the following information about you: Alisha White [facility] 08/29/2017 1:57 PM Signed Eric Hansen MD 08/29/2017 2:21 PM Signed Seen once in January. Please address. Please advise if has locally will need f/u with images to review. MD Simona Schwab, RN, RN 08/29/2017 4:56 PM Signed Spoke with patient who reports did not advise that case was workmen comp at last office visit. Advise that last visit billed to insurance, he will have to speak with his case maker. He reports that he has an upcoming OV and will get new evaluation. Question if he has approval from for OV and evaluation. He states that he has. He will f/u on 09/09/17 for new evaluation under Allergies As of Date: 08/28/2017 Noted Allergy Reaction CATS 04/03/2014 9 - Itching SEASONAL ALLERGIES 09/17/2014 14 - Other: See Comments Comments: Runny nose and itchy eyes Date Reviewed: 05/01/2017 Reviewed by: Clinton Shrestha MD - Fully Assessed Prescriptions as of 08/28/2017 Sig: GLIMEPIRIDE 1 MG TABLET Take 1 mg by mouth daily with* CO Q-10 ORAL Take by mouth. CHOLECALCIFEROL (VITAMIN D3) * Take by mouth. Takes 2 pills* MOMETASONE 50 MCG/ACTUATION N* Use 2 Sprays in the nose once* ROSUVASTATIN 10 MG TABLET Take 10 mg by mouth once bryanna* OXAPROZIN 600 MG TABLET Take 1 tablet twice daily or * BACLOFEN 10 MG TABLET Take 1 tablet by mouth three * METFORMIN 1,000 MG TABLET Take 1,000 mg by mouth twice * EFFEXOR XR ORAL Take 150 mg by mouth twice da* RISPERIDONE 3 MG TABLET Take 3 mg by mouth twice bryanna* ACIPHEX ORAL Take 20 mg by mouth twice kitty* LAMICTAL ORAL Take 200 mg by mouth once kitty* Problem List As Of Date 08/28/2017 Noted Resolved Tear of medial cartilage or meniscus of knee, c*INVALID FOR* S/P right knee arthroscopy, partial medial meni*INVALID FOR* 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] INVALID FOR* Referred otalgia [H92.09] INVALID FOR* Urinary urgency [R39.15] INVALID FOR* Urge incontinence [N39.41] INVALID FOR* S/P left knee arthroscopy and partial medial me*INVALID FOR* Scrotal skin lesion [N50.9] INVALID FOR* Right lateral epicondylitis [M77.11] INVALID FOR* Elbow pain [M25.529] INVALID FOR* Pain in right wrist [M25.531] INVALID FOR* Soft tissue mass [M79.9] INVALID FOR* Neuritis [M79.2] INVALID FOR* Bilateral low back pain with sciatica [M54.40] INVALID FOR*03/16/2016 Morbid obesity due to excess calories (HCC) [E6*INVALID FOR*03/16/2016 Post laminectomy syndrome [M96.1] INVALID FOR* Chronic bilateral low back pain with sciatica [*INVALID FOR* Morbid obesity (HCC) [E66.01] INVALID FOR* Encounter Status:Closed by ERIC HANSEN MD on 08/29/17 ALLERGIES ALLERGIES DATE TYPE / CODE NAME / CODE REACTION SEVERITY SOURCE 07/07/2018 Drug No Known Unknown [facility] Allergy/416 Allergies/[id number] Hospital 614206(SNOM 0388(RXNORM) Repository ED CT) 09/17/2014 Environ/420 SEASONAL OTHER: SEE Maurice Rodriguez [facility] [id number](SNOM ALLERGIES [facility] [place] ED CT) Repository 04/03/2014 Animal/4201 CATS ITCHING [facility] 03010(SNOME [facility] [place] D CT) Repository /[id number] CATS [facility]OM[facility]) Repository NG/[id number] SEASONAL [facility] 6(SNOMED [facility]) Repository Drug NO KNOWN [facility] Class/33945 ALLERGIES Repository 1003(SNOMED CT) ENCOUNTERS ENCOUNTERS ADMIT/DISCHARGE ACCOUNT NUMBER ADMITTING ENCOUNTER LOCATION SOURCE CLASS 07/19/2018 [id number] Ambulatory [facility] MEDICAL Repository CENTERBuildi ng:AGGENS4 07/13/2018 [id number] Ambulatory [facility] MEDICAL Repository CENTERBuildi ng:AGPSYACC 07/11/2018/07/11/20 [id number] Ambulatory [address] Other [place] Repository 07/11/2018/07/11/20 [id number] Ambulatory [facility] [address] MEDICAL Repository CENTERBuildi ng:AGPSYACC 07/10/2018/07/10/20 [id number] Ambulatory [address] ding:SDCRoom Repository : AC07 07/03/2018/07/03/20 [id number] Ambulatory [address] Repository 07/03/2018/07/03/20 [id number] Ambulatory [address] MEDICAL Repository CENTERBuildi ng:AGGENS4 06/29/2018 [id number] Ambulatory [facility] ding:HPRAD Repository 06/29/2018/06/29/20 [id number] Ambulatory BMSBuilding: [address] Repository 06/27/2018/06/27/20 [id number] Ambulatory [address] Other [place] Repository 06/27/2018/06/27/20 [id number] Ambulatory [facility] [address] MEDICAL Repository CENTERBuildi ng:AGGENS4 06/26/2018/06/26/20 [id number] Ambulatory [address] Repository 06/26/2018/06/26/20 [id number] Ambulatory [facility] [address] MEDICAL Repository CENTERBuildi ng:AGPSYACC 06/13/2018 [id number] Ambulatory [facility] MEDICAL Repository CENTERBuildi ng:AGPSYACC 06/08/2018/06/08/20 [id number] Ambulatory [address] [place] Repository 06/08/2018/06/08/20 [id number] Ambulatory [place] [address] MEDICAL Repository CENTERBuildi ng:SUBS 06/08/2018/06/08/20 [id number] Ambulatory [address] Other [place] Repository 06/08/2018/06/08/20 [id number] Ambulatory [facility] [address] MEDICAL Repository CENTERBuildi ng:AGPSYACC 05/17/2018 [id number] Ambulatory [place] [facility] MEDICAL Repository CENTERBuildi ng:AGPSYACC 05/12/2018 [id number] Ambulatory [facility] MEDICAL Repository CENTERBuildi ng:AGPSYACC 05/11/2018/05/11/20 [id number] Ambulatory [address] Other [place] Repository 05/11/2018/05/11/20 [id number] Ambulatory [facility] [address] MEDICAL Repository CENTERBuildi ng:SUBS 04/11/2018/04/11/20 [id number] Ambulatory [address] Repository 04/11/2018/04/11/20 [id number] Ambulatory [facility] [address] MEDICAL Repository CENTERBuildi ng:AGPSYACC 04/06/2018 [id number] Ambulatory [facility] MEDICAL Repository CENTERBuildi ng:AGPSYACC 03/14/2018/03/14/[id number] ding:Hiro Sandoval nt MedicRoom: Room 2 03/02/2018/03/08/20 [id number] Ambulatory [address] Main [place] Repository 03/02/2018/03/03/20 [id number] Ambulatory [address] Main [place] Repository 02/22/2018 [id number] Ambulatory BMSBuilding: [place] [facility] Repository 01/20/2018/01/21/20 [id number] Ambulatory BMSBuilding: Asim 18 [facility] Repository 01/04/2018 [id number] Ambulatory [facility] ding:MTRAD Repository 12/15/2017/12/16/19 [id number] Ambulatory [address] Other [place] Repository 12/15/2017/12/16/19 [id number] Ambulatory [facility] [address] MEDICAL Repository CENTERBuildi ng:AGPSYACC 12/14/2017 [id number] Ambulatory [facility] Repository 12/01/2017/12/03/19 [id number] Ambulatory [address] Repository 12/01/2017 [id number] Ambulatory [facility] Repository 11/01/2017/11/02/19 [id number] Ambulatory BMSBuilding: Asim [address] [facility] Repository 10/12/2017/10/13/19 [id number] CHELSIE BULLOCK Ambulatory Building:[place] [address] [address] Repository 09/27/2017/09/28/19 [id number] Ambulatory [address] Repository 08/17/2017 [id number] Evon MARCH, Ambulatory [facility] Repository PAYERS PAYERS ENCOUNTER GUARANTOR PAYER SUBSCRIBER SOURCE 07/19/2018 BENTLEY Barlow Primary [facility] EDELMANDOB: [facility]all System HIXPolicy Number: [id number] Repository [facility] [address] [id number] [address], Date: [place] [address]Tkv: () 07/13/2018 BENTLYE Yen Primary [facility] EDELMANDOB: Insurance:[facility]: Y'all System HIXPolicy Number: [id number] [address]ository [address] [id number] [address], Date: [place] [address]Ceu: (HP) 07/11/2018 BENTLEY Barlow Primary [facility] EDELMANDOB: Insurance:CARESOURCE [facility]: [facility] System HIXPolicy Number: [id number] [address]ository [address] [id number] [address], Date: [place] [address]Rnd: (HP) 07/10/2018 BENTLEY Barlow Primary BENTLEY Barlow Asim [id number] TR Insurance:CARESOURCE EDELMANDOB: Community [facility] FOR [facility] [id number] Hospital [place] [address]Mcr: Number: Repository [id number] (HP) Date:3032-38-85XK [address] [place] [phone]: 07/10/2018 Secondary NOT GIVENUNK Asim Insurance:SELF PAY [facility] Number: Effective Repository Date:2018-07-03 07/03/2018 BENTLEY Barlow Primary [facility]: Health System [facility] Number: [id number] Repository [facility] [id number] [address] [place] [address], Date: [place] [address]Feb: (HP) 06/29/2018 BENTLEY Barlow Primary BENTLEY Barlow [place] [id number] TR Insurance:CARESOURCE EDELMANDOB: Community [address] [place] [address], JUST FOR [facility] [id number] [address]Wni: Number: Repository [id number] (HP) Date:2760-01-44MT [address] [phone]: 06/29/2018 Secondary NOT GIVENUNK Asim Insurance:SELF PAY [facility] Number: Effective Repository Date:2018-06-29 06/29/2018 BENTLEY Barlow Primary BENTLEY Barlow [place] [id number] TR Insurance:CARESOURCE EDELMANDOB: Community [address] [place] [address], [facility] FOR [facility] [id number] Hospital [place] [address]Ohg: Number: Repository [id number] (HP) Date:1817-21-17KN [address] [place] [phone]: 06/29/2018 Secondary NOT GIVENUNK [place] Insurance:SELF PAY [facility] Number: Effective Repository Date:2018-06-09 06/27/2018 BENTLEY Barlow Primary BENTLEY [facility] EDELMANDOB: Insurance:CARESOURCE EDELMANDOB: Health System HIXPolicy Number: [id number] [address]ository [address] [id number] [address], Date: [place] [address]Dya: (HP) 06/26/2018 BENTLEY Barlow Primary [facility]ENTLEY [facility] EDELMANDOB: Insurance:CARESOURCE EDELMANDOB: Health System HIXPolicy Number: [id number] [address]ository [address] [id number] [address], Date: [place] [address]Jnw: (HP) 06/13/2018 BENTLEY Barlow Primary [facility] EDELMANDOB: Insurance:CARESOURCE EDELMANDOB: Health System HIXPolicy Number: [id number] Repository [facility] [address] [id number] [address], Date: [place] [address]Blv: (HP) 06/08/2018 BENTLEY Barlow Primary B[facility] EDELMANDOB: Insurance:CARESOURCE EDELMANDOB: Health System HIXPolicy Number: [id number] [address]ository [address] [id number] [address], Date: [place] [address]Fzk: (HP) 06/08/2018 BENTLEY Barlow Primary [facility] EDELMANDOB: Insurance:CARESOURCE EDELMANDOB: Health System HIXPolicy Number: [id number] Repository [address] [id number] [address], Date: [place] [address]Utp: (HP) 05/17/2018 BENTLEY Barlow Primary [facility] EDELMANDOB: Insurance:CARESOURCE EDELMANDOB: Health System HIXPolicy Number: [id number] Repository [address] [id number] [address], Date: [place] [address]Jdh: (HP) 05/12/2018 BENTLEY Barlow Primary BENTLEY Bar[facility] EDELMANDOB: Insurance:CARESOURCE EDELMANDOB: Health System HIXPolicy Number: [id number] Repository [address] [id number] [address], Date: [place] [address]Ums: (HP) 05/11/2018 BENTLEY Barlow Primary BENTLEY [facility] EDELMANDOB: Insurance:CARESOURCE EDELMANDOB: Health System HIXPolicy Number: [id number] Repository [facility] [address] [id number] [address], Date: [place] [address]Fwk: (HP) 04/11/2018 BENTLEY Barlow Primary BENTLEY [facility] EDELMANDOB: Insurance:CARESOURCE EDELMANDOB: Health System HIXPolicy Number: [id number] Repository [facility] [address] [id number] [address], Date: [place] [address]Kua: (HP) 04/06/2018 BENTLEY Barlow Primary BENTLEY [facility] EDELMANDOB: Insurance:CARESOURCE EDELMANDOB: Health System HIXPolicy Number: [id number] Repository [facility] [address] [id number] 1097[facility], Date: [place] [address]Ryq: (HP) 02/22/2018 BENTLEY Barlow Primary BENTLEY [place] [id number] TR Insurance:CARESOURCEP EDELMANDOB: [address] Number: [id number] [facility] [address]Low: [id number] Repository Date:2017-11-01P O () [address]ATTN: [place] [address]RK: 02/22/2018 Secondary NOT GIVENUNK [place] Insurance:SELF PAY [facility] Number: Effective Repository Date:2018-02-15 01/20/2018 BENTLEY Barlow Primary BENTLEY Dailey [id number] TR Insurance:CARESOURCE EDELMANDOB: Community [address] [place] [address] FOR [facility] [id number] [address]Irk: Number: Repository [id number] (HP) Date:2651-58-62AY[address] [address]CA: 01/20/2018 Secondary NOT GIVENUNK [place] Insurance:SELF PAY [facility] Number: Effective Repository Date:2018-01-20 01/04/2018 BENTLEY G Primary BENTLEY Dailey [id number] TR Insurance:CARESOURCE EDELMANDOB: [address] [id number] [place] [address]Yll: Number: Repository [id number] (HP) Date:3764-06-83LF [address] [place] [phone]: 01/04/2018 Secondary NOT GIVENUNK Asim Insurance:SELF PAY [facility] Number: Effective Repository Date:2018-01-04 12/15/2017 BENTLEY G Primary BENTLEY Barlow [facility] EDELMANDOB: Insurance:CARESOURCE EDELMANDOB: Health System KSXPolicy Number: [id number] [id number] [address] [place] [address], Date: [place] [address]Ykz: (HP) 11/01/2017 BENTLEY Dailey [id number] [address] Insurance:CARESOURCEP EDELMANDOB: Community olicy Number: [id number] [id number] [facility] [place] [address]Bir: Date:2017-09-30[address]ATTN: CLAIMS (HP) [place] [address]NO: 11/01/2017 Secondary NOT GIVENUNK [place] Insurance:SELF PAY [facility] Number: Effective Repository Date:2017-11-01 10/12/2017 BENTLEY Primary [facility] Health One EDELMANDOB: Insurance:MARKET EDELMANDOB: Repository [id number] [address] [facility] Cent[facility] [id number] [address] Number: [address] [address], [id number] [address] [place] [address]Frx: Date:6139-32-06[place] [address] [address], [place] () [address]RI: 08/17/2017 Primary [facility] Insurance:[employer] EDELMANDOB: Bebeto Number: [id number] [facility] [id number] [address] Repository Date:[facility], Name:[facility] [place] [address]Vct: [address] [place] [address]YV: (000) (GE) [phone]
== END ==
PROVIDERS: Family Provider Family Medicine; PCP Family Medicine; Referring Provider Orthopaedic Surgery; Visit Provider Orthopaedic Surgery
DX: M79.645 Pain in left finger(s) (principal)
CPT/HCPCS: 73140

== ENCOUNTER 2018-07-10 10:36 | Day surgery (SDC) | payer OTHER, SELFPAY ==
[2018-06-29 12:38] VITALS: BMI 57.3
--- NOTE | 2018-07-10 | CYST_PTH ---
PATIENT: KONSTANTIN WELLS LOC: [facility] – [place] U[place][id number] AGE/SX: 52/M ROOM: RE07/10/[address]: Dr. Paige Garcia DO : 1965 BED: DIS: 07/10/2018 SPEC #: [id number] RECD: 07/10/18 14:53 STATUS: JANNA EUNICE #: [id number] [place]: 07/10/18 00:[address]: Paige Garcia DEPT: SURGICAL PATHOLOGY RECD BY: Gonzalez Donohue ENTERED: 07/10/18 14:54 SP TYPE: Cyst OTHR DR: GEOVANNY Tolentino Tissues: Finger, NOS Procedures: Surgery Specimen Level IV HEADER OPERATION: Left index finger cyst excision PRE-OP DIAGNOSIS: Left index finger cyst TISSUE SUBMITTED: Left index finger cyst MICROSCOPIC DIAGNOSIS Left index finger cyst, biopsy: Fragments of hyperkeratotic superficial skin. AM:adarsh 07/11/18 COMMENT Clinical correlation is suggested. A distinct cystic structure is not identified. MICROSCOPIC DESCRIPTION Slides are reviewed. GROSS DESCRIPTION Received in fixative is one container labeled with the patient's name and designated left index finger cyst. The specimen consists of two irregular fragments of knight tissue measuring 0.6 x 0.5 x 0.1 cm. The specimen is totally submitted in one cassette. / AM:adarsh 07/10/18 TC:5 CPT: 90040
[2018-07-10 10:56] VITALS: BP 147/59; PULSE 87; RESP 16; TEMP 36.3; O2SAT 97; BMI 58.4
[2018-07-10] MEDS: Cefadroxil 500 MG CAPSULE 1000 MG PO (11:46)
[2018-07-10] MEDS: Bupivacaine Mpf 0.5% 30 ML VIAL (13:50)
[2018-07-10] MEDS: Mupirocin Ointment 22gm Tube 1 APPLIC (14:00)
--- NOTE | 2018-07-10 14:19 | DCINST_ITS ---
Discharge Diet: No Restrictions - leave dressing clean and dry, call with issues, may redress area if gets wet/soiled, follow up in 10-14 days for suture removal Discharge Activity: May Not Drive May shower in (days): 1 Ice area for (Minutes): 20 - Every hour while awake. Weight Bearing Status: Weight bearing as tolerated Keep extremity elevated above heart level: Operative Extremity Call your doctor if your incision/area has: Continuous Slow Oozing, Sudden Increased Bleeding, Increased Pain/ Swelling, Increased Redness, Foul Smelling Discharge Call your doctor if you observe: Fever of 101 or Higher, Coldness, Increased Pain, Numbness or Tingling, Change in Color, Calf discomfort Allergies/Adverse Reactions: Allergies No Known Allergies Allergy (Verified 07/07/18 15:22) Medications to take at Discharge cholecalciferol (vitamin D3) 3,000 unit tablet 5,000 unit PO QDAY 11/01/17 coenzyme Q10 100 mg capsule 100 mg PO QDAY 11/01/17 glimepiride 1 mg tablet 1 mg PO DAILY tab 11/01/17 lamotrigine 200 mg tablet 200 mg PO DAILY 11/01/17 metformin 500 mg tablet 1,000 mg PO BID tab 11/01/17 mometasone 50 mcg/actuation nasal spray 2 spray INTRANASAL ONCE g 11/01/17 rabeprazole 20 mg tablet,delayed release 20 mg PO BID 11/01/17 risperidone 3 mg tablet 3 mg PO BID tab 11/01/17 rosuvastatin 10 mg tablet 10 mg PO QHS 11/01/17 venlafaxine ER 150 mg capsule,extended release 24 hr 150 mg PO BID 11/01/17 Acetaminophen/Codeine #3 [Tylenol #3 Tablet] 1 - 2 tablet PO Q6H PRN PRN #30 tablet 07/10/18 The following prescriptions were given: Acetaminophen/Codeine #3 [Tylenol #3 Tablet] 1 - 2 tablet PO Q6H PRN PRN #30 tablet PRN Reason: Pain Primary Care Physician: Albina Church NP-C [Primary Care Provider] - Test Results: Test results from this visit will be discussed in further detail at your follow- up appointment, if applicable. Please Follow Up With: Paige Garcia, - [phone]
--- NOTE | 2018-07-10 14:19 | PCM.OPRPT ---
Report of Operation Date of Procedure: 07/10/18 Pre-Operative Diagnosis: foreign body/ track left index finger Post-Operative Diagnosis: same Surgery/Procedure Performed:: left index finger foreign body excision/tract excision, soft tissue and ambar debridement Type of Anesthesia:: Local Estimated Blood Loss (mL): none Fluids Replaced: none Description of Procedure: Preop note Patient is a 52-year-old male who has had a left index finger appears to be a foreign body that keeps annoying him for over the last few months. Patient is seeing a community service officer and had it removed it came back. Wrist benefits alternatives surgery discussed with patient. Risks include but not limited to blood loss, blood clot, infection, neurovascular injury, failure procedure, loss of life and loss of limb. Is unsure if this is a foreign body or tract coming from somewhere else deeper so we will excise it including the skin is sent to pathology for further evaluation. Patient is aware like proceed his aforementioned. Operative note Patient seen and examined preoperative holding area left index finger was marked. Patient brought to the operating placed supine on the operating table. Signing anesthesia and antibiotics and local was placed into his left index finger. We able to visualize what appeared to be a little black dot just at the tip of his finger just underneath the germinal matrix. We then placed a tourniquet on his finger timeout was performed we then ellipticized the area which appeared to be with the black dot in the track and sent to pathology for further evaluation. We then were able to visualize the tract and there we were able to visualize the bone we did some bony debridement see if there is anything a foreign body or anything around the bones which there was not. We then irrigated the incision with copious amounts of sterile saline. We noted that there was no further tracking towards the nail or the pulp of the finger we closed the skin with interrupted 4-0 nylon stitches. Sterile dressings were applied tourniquet was removed. There were no complications transferred to recovery room in stable condition. Next Postoperative note May use finger as tolerated keep clean and dry for the next 10-14 days and Prescription at Hospital pharmacy Call with increased pain numbness tingling further issues arise This note was generated with [employer] software. It may contain incorrect words, spelling, and punctuation that were not noted in checking the note before signing.
[2018-07-10 14:35] VITALS: BP 114/68; BP 147/59; PULSE 74; RESP 16; TEMP 36.9; O2SAT 94
== END 2018-07-10 14:35 | disposition home or self-care (01) ==
LOC: SDC 10:37 → AC 10:39
PROVIDERS: Family Provider Nurse Practitioner Family; PCP Nurse Practitioner Family; Referring Provider Orthopaedic Surgery; Visit Provider Orthopaedic Surgery
PROC: (CPT 10120; principal; 2018-07-10 12:10)
DX: L85.9 Epidermal thickening, unspecified (principal); K21.9 Gastro-esophageal reflux disease without esophagitis; G47.33 Obstructive sleep apnea (adult) (pediatric); Z79.84 Long term (current) use of oral hypoglycemic drugs; Z79.899 Other long term (current) drug therapy
CPT/HCPCS: 10120; 88304; 88305